=== PATIENT | male | born 1995 | race Hispanic/Latino ===

== ENCOUNTER 2017-12-31 13:40 | Emergency (ER) | payer OTHER ==
--- NOTE | 2017-12-31 15:09 | RAD REPORT ---
EXAM DESCRIPTION: RAD -Hand Left 3 View - 12/31/2017 2:45 pm CLINICAL HISTORY: Left hand pain status post injury FINDINGS: The fifth middle phalanx is dislocated dorsally. No fracture is seen
[2017-12-31] MEDS ORDERED: LIDOCAINE 1% MPF 5 ML VIAL ONE (15:17)
[2017-12-31] MEDS ORDERED: BUPIVACAINE 0.5% PF 10 ML VIAL ONE (15:17)
--- NOTE | 2017-12-31 15:58 | EDPHYS ---
Physician Documentation [facility] Name: Carl Sandy Age: 22 yrs Sex: Male : 1995 Arrival Date: 12/31/2017 Time: 13:42 Bed 24 Private MD: ED Physician Delmar Snow HPI: 12/31 13:50 This 22 yrs old Male presents to ER via Ambulatory with complaints of Finger kb Injury. 13:50 The patient or guardian reports injury, pain, swelling, tenderness. The complaints kb affect the left little finger. Context: The problem was sustained at home, resulted from a crush injury, by a heavy object. Onset: The symptoms/episode began/occurred this morning, at 06:30. Modifying factors: The symptoms are alleviated by nothing, the symptoms are aggravated by nothing. Associated signs and symptoms: The patient has no apparent associated signs or symptoms. Severity of symptoms: At their worst the symptoms were moderate, in the emergency department the symptoms are unchanged. The patient has not experienced similar symptoms in the past. The patient has not recently seen a physician. Historical: - Allergies: 13:45 No Known Allergies; la1 - PMHx: 13:45 Diabetes - NIDDM; la1 - Immunization history:: Adult Immunizations up to date. - Social history:: Smoking status: Patient/guardian denies using tobacco. ROS: 13:50 Constitutional: Negative for fever, chills, and weight loss, Cardiovascular: Negative kb for chest pain, palpitations, and edema, Respiratory: Negative for shortness of breath, cough, wheezing, and pleuritic chest pain, Abdomen/GI: Negative for abdominal pain, nausea, vomiting, diarrhea, and constipation, Neuro: Negative for headache, weakness, numbness, tingling, and seizure. 13:50 MS/extremity: Positive for injury or acute deformity, ecchymosis, pain, swelling, tenderness, of the left little finger. Exam: 13:50 Constitutional: This is a well developed, well nourished patient who is awake, alert, kb and in no acute distress. Head/Face: Normocephalic, atraumatic. Chest/axilla: Normal chest wall appearance and motion. Nontender with no deformity. No lesions are appreciated. Cardiovascular: Regular rate and rhythm with a normal S1 and S2. No gallops, murmurs, or rubs. Normal PMI, no JVD. No pulse deficits. Respiratory: Lungs have equal breath sounds bilaterally, clear to auscultation and percussion. No rales, rhonchi or wheezes noted. No increased work of breathing, no retractions or nasal flaring. Abdomen/GI: Soft, non-tender, with normal bowel sounds. No distension or tympany. No guarding or rebound. No evidence of tenderness throughout. Neuro: Awake and alert, GCS 15, oriented to person, place, time, and situation. Cranial nerves II-XII grossly intact. Motor strength 5/5 in all extremities. Sensory grossly intact. Cerebellar exam normal. Normal gait. 13:50 Musculoskeletal/extremity: Extremities: grossly normal except: noted in the left little finger: decreased ROM, ecchymosis, pain, swelling, tenderness, ROM: limited active range of motion, in the left little finger, Circulation is intact in all extremities. Sensation intact. Vital Signs: 13:45 BP 151 / 90; Pulse 105; Resp 19; Temp 97.3; Pulse Ox 100% on R/A; Weight 108.41 kg (R); la1 16:08 BP 149 / 86; Pulse 94; Resp 17; Pulse Ox 99% on R/A; aj Procedures: 15:17 Reduction: of the left little finger, using traction, Immobilized with finger splint, kb Patient tolerated well. 15:57 Reduction: Post reduction film - reveals normal alignment. kb MDM: 13:47 Patient medically screened. kb 13:50 Data reviewed: vital signs, nurses notes. Data interpreted: Pulse oximetry: on room air kb is 100 %. Interpretation: normal. 15:17 Counseling: I had a detailed discussion with the patient and/or guardian regarding: the kb historical points, exam findings, and any diagnostic results supporting the discharge/admit diagnosis, radiology results, the need for outpatient follow up, a orthopedic surgeon, to return to the emergency department if symptoms worsen or persist or if there are any questions or concerns that arise at home. 12/31 13:49 Order name: Hand Left 3 View XRAY; Complete Time: 15:12 kb 12/31 15:45 Order name: Hand Left 3 View; Complete Time: 16:06 EDMS Administered Medications: 15:01 Drug: Lidocaine (1 %) 5 mg Route: Infiltration; aj 15:02 Drug: Bupivacaine (0.5 %) 5 ml Volume: 10 ml; Route: Infiltration; grisel Disposition: 16:52 Co-signature as Attending Physician, Delmar Snow MD I agree with the assessment and kdr plan of care. Disposition: 12/31/17 15:58 Discharged to Home. Impression: Unspecified dislocation of left little finger - middle phalynx - reduced. - Condition is Stable. - Discharge Instructions: Finger Dislocation, [id number]. - Medication Reconciliation Form, Thank You Letter, Antibiotic Education, Prescription Opioid Use form. - Follow up: Emergency Department; When: As needed; Reason: Worsening of condition. Follow up: Private Physician; When: 2 - 3 days; Reason: Recheck today's complaints, Continuance of care, Re-evaluation by your physician. Signatures: Dispatcher [employer] EDvEelia Deleon, INTERNET SECURITY SPECIALIST-C INTERNET SECURITY SPECIALIST-CkIsha Orellana, RN Delmar Solitario MD MD [facility] Dav Fuentes RN RN la1 Corrections: (The following items were deleted from the chart) 15:45 15:18 Hand Left 2 View+RAD.RAD.BRZ ordered. EDMT EDMS
--- NOTE | 2017-12-31 15:58 | ER ---
Nurse's Notes [facility] Name: Carl Sandy Age: 22 yrs Sex: Male : 1995 Arrival Date: 12/31/2017 Time: 13:42 Bed 24 Private MD: Diagnosis: Unspecified dislocation of left little finger-middle phalynx - reduced Presentation: 12/31 13:44 Presenting complaint: Patient states: I dropped a box on my left pinky and its bruising la1 pretty bad. Transition of care: patient was not received from another setting of care. Onset of symptoms was December 31, 2017. Care prior to arrival: None. 13:44 Method Of Arrival: Ambulatory la1 13:44 Acuity: NICKY 4 la1 Historical: - Allergies: 13:45 No Known Allergies; la1 - PMHx: 13:45 Diabetes - NIDDM; la1 - Immunization history:: Adult Immunizations up to date. - Social history:: Smoking status: Patient/guardian denies using tobacco. Screenin:02 Abuse screen: Denies threats or abuse. Denies injuries from another. Nutritional aj screening: No deficits noted. Tuberculosis screening: No symptoms or risk factors identified. Fall Risk None identified. Assessment: 13:59 General: Appears in no apparent distress. comfortable, Behavior is calm, cooperative, aj appropriate for age. Pain: Complains of pain in palmar aspect of distal phalanx of left little finger, palmar aspect of middle phalanx of left little finger, palmar aspect of proximal phalanx of left little finger and inner aspect of left palm. Neuro: Level of Consciousness is awake, alert, obeys commands, Oriented to person, place, time, situation. Respiratory: Airway is patent Respiratory effort is even, unlabored, Respiratory pattern is regular, symmetrical. Derm: Skin is intact, is healthy with good turgor, Skin is pink, warm \T\ dry. normal, Bruising that is dark purple, on palmar aspect of distal phalanx of left little finger, palmar aspect of middle phalanx of left little finger, palmar aspect of proximal phalanx of left little finger and inner aspect of left palm. Musculoskeletal: Swelling present in palmar aspect of distal phalanx of left little finger, palmar aspect of middle phalanx of left little finger, palmar aspect of proximal phalanx of left little finger and inner aspect of left palm Reports pain in palmar aspect of distal phalanx of left little finger, palmar aspect of middle phalanx of left little finger, palmar aspect of proximal phalanx of left little finger and inner aspect of left palm. 16:08 Reassessment: Patient appears in no apparent distress at this time. No changes from aj previously documented assessment. Patient and/or family updated on plan of care and expected duration. Pain level reassessed. Patient is alert, oriented x 3, equal unlabored respirations, skin warm/dry/pink. Patient states feeling better. Patient states symptoms have improved. Vital Signs: 13:45 BP 151 / 90; Pulse 105; Resp 19; Temp 97.3; Pulse Ox 100% on R/A; Weight 108.41 kg (R); la1 16:08 BP 149 / 86; Pulse 94; Resp 17; Pulse Ox 99% on R/A; aj ED Course: 13:42 Patient arrived in ED. as 13:44 Dav Fuentes RN is Primary Nurse. la1 13:45 Triage completed. la1 13:45 Arm band placed on left wrist. la1 13:46 Evelia Rasmussen FNP-C is PHCP. kb 13:46 Delmar Snow MD is Attending Physician. kb 14:02 Patient has correct armband on for positive identification. aj 14:42 X-ray completed. Portable x-ray completed in exam room. Patient tolerated procedure la2 well. 14:44 Hand Left 3 View XRAY In Process Unspecified. EDMS 15:47 Hand Left 3 View In Process Unspecified. EDMS 16:08 No provider procedures requiring assistance completed. Patient did not have IV access aj during this emergency room visit. Administered Medications: 15:01 Drug: Lidocaine (1 %) 5 mg Route: Infiltration; aj 15:02 Drug: Bupivacaine (0.5 %) 5 ml Volume: 10 ml; Route: Infiltration; aj Outcome: 15:58 Discharge ordered by . kb 16:08 Discharged to home ambulatory. aj 16:08 Condition: good 16:08 Discharge instructions given to patient, Instructed on discharge instructions, follow up and referral plans. Demonstrated understanding of instructions, follow-up care, splint care. 16:10 Patient left the ED. aj Signatures: Dispatcher [employer] EDMS Evelia Rasmussen FNP-C SHOWROOM SALES ASSISTANT-Ckb Ihsa Goel, RN RN Adriana Tobias Lee, RN RN la1 Caroline Blackwell
--- NOTE | 2017-12-31 16:04 | RAD REPORT ---
EXAM DESCRIPTION: RAD -Hand Left 3 View - 12/31/2017 3:48 pm CLINICAL HISTORY: Left hand pain status post injury FINDINGS: Previously described dislocation involving the fifth middle phalanx has been reduced.
[2017-12-31 16:14] VITALS: TEMP 97.3
[2017-12-31 16:15] VITALS: BP 149/86; O2SAT 99
== END 2017-12-31 16:10 | disposition home or self-care (01) ==
LOC: ER 13:40
PROC: 0RSXXZZ Reposition Left Finger Phalangeal Joint, External Approach (ICD-10-PCS; principal; 2017-12-31)
DX: S63.257A Unspecified dislocation of left little finger, initial encounter (principal); W23.0XXA Caught, crushed, jammed, or pinched between moving objects, initial encounter; Y93.9 Activity, unspecified; Y92.9 Unspecified place or not applicable; Y99.9 Unspecified external cause status
CPT/HCPCS: 99283

== ENCOUNTER 2018-04-23 15:57 | Emergency (ER) | payer OTHER, SELFPAY ==
--- NOTE | 2018-04-23 17:57 | ER ---
Nurse's Notes [facility] Name: Carl Sandy Age: 22 yrs Sex: Male : 1995 Arrival Date: 04/23/2018 Time: 16:04 Bed 12 Private MD: Yves Salcedo W Diagnosis: Vomiting;Other seasonal allergic rhinitis Presentation: 04/23 16:24 Presenting complaint: Patient states: Itchy eyes, nonproductive cough, nausea, and hb sinus congestion x 3 weeks, worse over last 3 days. Transition of care: patient was not received from another setting of care. Onset of symptoms was April 23, 2018. Risk Assessment: Do you want to hurt yourself or someone else? Patient reports no desire to harm self or others. Initial Sepsis Screen: Does the patient meet any 2 criteria? No. Patient's initial sepsis screen is negative. Does the patient have a suspected source of infection? No. Patient's initial sepsis screen is negative. Care prior to arrival: None. 16:24 Method Of Arrival: Ambulatory hb 16:24 Acuity: NICKY 4 hb Historical: - Allergies: 16:26 No Known Drug Allergies; hb - Home Meds: 16:26 Metformin Oral [Active]; glipizide 2.5 mg Oral tr24 2 tabs once daily [Active]; hb - PMHx: 16:26 Diabetes - NIDDM; hb - PSHx: 16:26 None; hb - Immunization history:: Adult Immunizations up to date. - Social history:: Smoking status: Patient/guardian denies using tobacco. - Ebola Screening: : No symptoms or risks identified at this time. Screenin:08 Abuse screen: Denies threats or abuse. Denies injuries from another. Nutritional rv screening: No deficits noted. Tuberculosis screening: No symptoms or risk factors identified. Fall Risk None identified. Assessment: 17:22 General: Appears in no apparent distress. comfortable, Behavior is calm, cooperative, rv appropriate for age. Pain: Denies pain. Pain: Complains of pain in HEAD. Neuro: Level of Consciousness is awake, alert, obeys commands, Oriented to person, place, time, situation. Cardiovascular: Heart tones S1 S2 present. Respiratory: Airway is patent. GI: No signs and/or symptoms were reported involving the gastrointestinal system. : No signs and/or symptoms were reported regarding the genitourinary system. EENT: No signs and/or symptoms were reported regarding the EENT system. Derm: Skin is intact. Vital Signs: 16:25 BP 161 / 95; Pulse 98; Resp 16; Temp 98; Pulse Ox 98% on R/A; Pain 4/10; hb ED Course: 16:04 Patient arrived in ED. sb2 16:04 Yves Salcedo MD is Private Physician. sb2 16:25 Triage completed. hb 16:25 Arm band placed on left wrist. hb 17:17 Jonas Lawrence PA is PHCP. jr8 17:17 Cj Sanders MD is Attending Physician. jr8 18:08 No provider procedures requiring assistance completed. rv 18:08 Patient did not have IV access during this emergency room visit. rv 18:09 Patient has correct armband on for positive identification. Bed in low position. NIBP rv on. Administered Medications: No medications were administered Point of Care Testing: Blood Glucose: 18:07 Blood Glucose: 276 mg/dL; rv Ranges: Outcome: 17:57 Discharge ordered by . jr8 18:09 Discharged to home ambulatory. rv 18:09 Condition: good 18:09 Discharge instructions given to patient, Instructed on discharge instructions, follow up and referral plans. Prescriptions given X 1. 18:09 Patient left the ED. rv Signatures: Jonas Lawrence PA PA jr8 Kya Vásquez, RN RN Kyle Anne-Marie sb2 Boby Camp RN RN rv
--- NOTE | 2018-04-23 17:57 | EDPHYS ---
Physician Documentation [facility] Name: Carl Sandy Age: 22 yrs Sex: Male : 1995 Arrival Date: 04/23/2018 Time: 16:04 Bed 12 Private MD: Yves Salcedo W ED Physician Cj Sanders HPI: 04/23 18:58 This 22 yrs old Male presents to ER via Ambulatory with complaints of Sinus jr8 congestion and vomiting. 18:58 Patient stated that he has seasonal allergies every year and has been having sinus jr8 congestion and drainage. Stated that he started vomiting and feeling dizzy now . Onset: The symptoms/episode began/occurred acutely, yesterday. Severity of symptoms: At their worst the symptoms were mild in the emergency department the symptoms are unchanged. The patient has not experienced similar symptoms in the past. The patient has not recently seen a physician. Historical: - Allergies: 16:26 No Known Drug Allergies; hb - Home Meds: 16:26 Metformin Oral [Active]; glipizide 2.5 mg Oral tr24 2 tabs once daily [Active]; hb - PMHx: 16:26 Diabetes - NIDDM; hb - PSHx: 16:26 None; hb - Immunization history:: Adult Immunizations up to date. - Social history:: Smoking status: Patient/guardian denies using tobacco. - Ebola Screening: : No symptoms or risks identified at this time. ROS: 18:58 Eyes: Negative for injury, pain, redness, and discharge, Neck: Negative for injury, jr8 pain, and swelling, Cardiovascular: Negative for chest pain, palpitations, and edema, Respiratory: Negative for shortness of breath, cough, wheezing, and pleuritic chest pain, Abdomen/GI: Negative for abdominal pain,, diarrhea, and constipation. Positive for vomiting Back: Negative for injury and pain, MS/Extremity: Negative for injury and deformity, Skin: Negative for injury, rash, and discoloration, Neuro: Negative for headache, weakness, numbness, tingling, and seizure. 18:58 ENT: Positive for rhinorrhea, sinus congestion, Negative for drainage from ear(s), ear pain, sore throat, difficulty swallowing, difficulty handling secretions, hoarseness. Exam: 18:58 Eyes: Pupils equal round and reactive to light, extra-ocular motions intact. Lids and jr8 lashes normal. Conjunctiva and sclera are non-icteric and not injected. Cornea within normal limits. Periorbital areas with no swelling, redness, or edema. ENT: Nares patent. No nasal discharge, no septal abnormalities noted. Tympanic membranes are normal and external auditory canals are clear. Oropharynx with no redness, swelling, or masses, exudates, or evidence of obstruction, uvula midline. Mucous membranes moist. Neck: Trachea midline, no thyromegaly or masses palpated, and no cervical lymphadenopathy. Supple, full range of motion without nuchal rigidity, or vertebral point tenderness. No Meningismus. Cardiovascular: Regular rate and rhythm with a normal S1 and S2. No gallops, murmurs, or rubs. Normal PMI, no JVD. No pulse deficits. Respiratory: Lungs have equal breath sounds bilaterally, clear to auscultation and percussion. No rales, rhonchi or wheezes noted. No increased work of breathing, no retractions or nasal flaring. Abdomen/GI: Soft, non-tender, with normal bowel sounds. No distension or tympany. No guarding or rebound. No evidence of tenderness throughout. Back: No spinal tenderness. No costovertebral tenderness. Full range of motion. Skin: Warm, dry with normal turgor. Normal color with no rashes, no lesions, and no evidence of cellulitis. MS/ Extremity: Pulses equal, no cyanosis. Neurovascular intact. Full, normal range of motion. Neuro: Awake and alert, GCS 15, oriented to person, place, time, and situation. Cranial nerves II-XII grossly intact. Motor strength 5/5 in all extremities. Sensory grossly intact. Cerebellar exam normal. Normal gait. Vital Signs: 16:25 BP 161 / 95; Pulse 98; Resp 16; Temp 98; Pulse Ox 98% on R/A; Pain 4/10; hb MDM: 17:33 Patient medically screened. jr8 17:55 Data reviewed: vital signs, nurses notes, and as a result, I will discharge patient. jr8 Data interpreted: Pulse oximetry: on room air is 98 %. Interpretation: normal. Counseling: I had a detailed discussion with the patient and/or guardian regarding: the historical points, exam findings, and any diagnostic results supporting the discharge/admit diagnosis, the need for outpatient follow up, a family practitioner, to return to the emergency department if symptoms worsen or persist or if there are any questions or concerns that arise at home. 04/23 17:56 Order name: Finger Stick; Complete Time: 18:07 jr8 Administered Medications: No medications were administered Point of Care Testing: Blood Glucose: 18:07 Blood Glucose: 276 mg/dL; rv Ranges: Critical Glucose Levels:Adult <50 mg/dl or >400 mg/dl <40 mg/dl or >180 mg/dl Disposition: 04/24 09:33 Co-signature as Attending Physician, Cj Sanders MD I agree with the assessment and malick plan of care. Disposition: 04/23/18 17:57 Discharged to Home. Impression: Vomiting, Other seasonal allergic rhinitis. - Condition is Stable. - Discharge Instructions: Nausea and Vomiting, Adult, Allergic Rhinitis. - Prescriptions for Zofran 4 mg Oral Tablet - take 1 tablet by ORAL route every 12 hours As needed; 6 tablet. - Medication Reconciliation Form, Thank You Letter, Antibiotic Education, Prescription Opioid Use form. - Follow up: Private Physician; When: 2 - 3 days; Reason: Recheck today's complaints, Continuance of care, Re-evaluation by your physician. - Problem is new. - Symptoms have improved. Signatures: Cj Sanders MD MD cha Roszak, Josh, PA PA jr8 Kya Vásquez, AMOR RN Boby Morgan RN RN rv Corrections: (The following items were deleted from the chart) 04/23 18:09 17:57 04/23/2018 17:57 Discharged to Home. Impression: Vomiting; Other seasonal rv allergic rhinitis. Condition is Stable. Forms are Medication Reconciliation Form, Thank You Letter, Antibiotic Education, Prescription Opioid Use. Follow up: Private Physician; When: 2 - 3 days; Reason: Recheck today's complaints, Continuance of care, Re-evaluation by your physician. Problem is new. Symptoms have improved. jr8
[2018-04-23 19:33] VITALS: BP 161/95; TEMP 98; O2SAT 98
== END 2018-04-23 18:09 | disposition home or self-care (01) ==
LOC: ER 15:57
DX: R11.10 Vomiting, unspecified (principal); J30.2 Other seasonal allergic rhinitis; E11.9 Type 2 diabetes mellitus without complications
CPT/HCPCS: 82962; 99282

== ENCOUNTER 2018-10-07 03:53 | Emergency (ER) | payer SELFPAY ==
[2018-10-07] MEDS ORDERED: ACETAMINOPHEN 500 MG TAB ONE (04:56)
[2018-10-07] MEDS ORDERED: FLUORESCEIN SODIUM 0.6 MG/WRAP ONE (04:57)
[2018-10-07] MEDS ORDERED: TETRACAINE HCL 0.5% 2ML OPTH ONE (04:57)
--- NOTE | 2018-10-07 05:18 | ER ---
Nurse's Notes [facility] Name: Carl Sandy Age: 23 yrs Sex: Male : 1995 Arrival Date: 10/07/2018 Time: 03:54 Bed 13 Private MD: Diagnosis: Acute Iritis R eye Presentation: 10/07 04:00 Presenting complaint: Patient states: Nontraumatic right eye redness, itchiness, and cc3 teary since 2 days. Transition of care: patient was not received from another setting of care. Mechanism of Injury: No Mechanism of Injury. The patient denies any loss of vision. Onset of symptoms was October 05, 2018. Risk Assessment: Do you want to hurt yourself or someone else? Patient reports no desire to harm self or others. Initial Sepsis Screen: Does the patient meet any 2 criteria? No. Patient's initial sepsis screen is negative. Does the patient have a suspected source of infection? No. Patient's initial sepsis screen is negative. 04:00 Method Of Arrival: Ambulatory cc3 04:00 Acuity: NICKY 3 cc3 04:00 Care prior to arrival: Medication(s) given: applied cream for stye at 2230H last night. cc3 Triage Assessment: 04:12 General: Appears in no apparent distress. uncomfortable, Behavior is calm, cooperative, cc3 appropriate for age. Pain: Complains of pain in right eye. EENT: Eyes are tearing on right eye. Neuro: Level of Consciousness is awake, alert, obeys commands, Oriented to person, place, time, situation, Appropriate for age. Cardiovascular: Denies chest pain. Respiratory: Airway is patent Respiratory effort is even, unlabored, Respiratory pattern is regular, symmetrical. GI: Abdomen is round obese. : No signs and/or symptoms were reported regarding the genitourinary system. Derm: No signs and/or symptoms reported regarding the dermatologic system. Musculoskeletal: Circulation, motion, and sensation intact. Range of motion:. Historical: - Allergies: 04:12 No Known Allergies; cc3 - Home Meds: 04:12 glipizide 2.5 mg Oral tr24 2 tabs once daily [Active]; Metformin Oral [Active]; cc3 - PMHx: 04:12 Diabetes - NIDDM; Hypertension; cc3 - PSHx: 04:12 abscess removal from the groin area; cc3 - Immunization history:: Adult Immunizations not up to date. - Social history:: Smoking status: Patient/guardian denies using tobacco, never smoked. - Ebola Screening: : No symptoms or risks identified at this time. - Family history:: not pertinent. - Hospitalizations: : No recent hospitalization is reported. Screenin:12 Abuse screen: Denies threats or abuse. Denies injuries from another. Nutritional cc3 screening: No deficits noted. Tuberculosis screening: No symptoms or risk factors identified. Fall Risk Ambulatory Aid- None/Bed Rest/Nurse Assist (0 pts). Gait- Normal/Bed Rest/Wheelchair (0 pts) Mental Status- Oriented to own ability (0 pts). Assessment: 04:12 EENT: Sclera/Cornea are reddened in right eye. cc3 05:30 Reassessment: Patient appears in no apparent distress at this time. Patient and/or cc3 family updated on plan of care and expected duration. Pain level reassessed. Patient is alert, oriented x 3, equal unlabored respirations, skin warm/dry/pink. Dr. Moura discharged the patient home with prescription given. No IV cannula in situ. Patient left ER vitally stable and ambulatory with his girlfriend. Vital Signs: 04:00 BP 162 / 97; Pulse 112; Resp 20 S; Temp 99.1(O); Pulse Ox 97% on R/A; Weight 108.86 kg cc3 (R); Height 5 ft. 7 in. (170.18 cm) (R); Pain 10/10; 05:15 BP 135 / 73; Pulse 100; Resp 19 S; Pulse Ox 96% on R/A; cc3 04:00 Body Mass Index 37.59 (108.86 kg, 170.18 cm) cc3 Visual Acuity: 04:12 ; patient glares with lights on cc3 ED Course: 03:54 Patient arrived in ED. ds1 03:58 Millie Vogel is Primary Nurse. cc3 04:11 Triage completed. cc3 04:12 Arm band placed on right wrist. Patient notified of wait time. cc3 04:12 Patient has correct armband on for positive identification. Bed in low position. Call cc3 light in reach. Side rails up X 1. Pulse ox on. NIBP on. 04:20 Jhonathan Moura MD is Attending Physician. 05:17 Dima Sharma MD is Referral Physician. 05:17 Kari Cardenas MD is Referral Physician. 05:17 David Sharma MD is Referral Physician. 05:30 No provider procedures requiring assistance completed. Patient did not have IV access cc3 during this emergency room visit. Administered Medications: 04:45 Drug: Tylenol 1000 mg Route: PO; cc3 05:15 Follow up: Response: No adverse reaction; Pain is decreased cc3 04:50 Drug: Tetracaine Drops 0.5 % 1 drops Route: Ophthalmic; Site: right eye; cc3 04:55 Drug: Fluorescein Strip 1 strip {Note: given by Dr. Moura.} Route: Ophthalmic; Site: cc3 right eye; Outcome: 05:18 Discharge ordered by . 05:30 Discharged to home ambulatory, with friend. cc3 05:30 Condition: stable 05:30 Discharge instructions given to patient, friend, Instructed on discharge instructions, follow up and referral plans. medication usage, Demonstrated understanding of instructions, follow-up care, medications, Prescriptions given X 1. 05:33 Patient left the ED. cc3 Signatures: Oneida Espinosa ds1 Jhonathan Moura MD MD wa Cordel, Charlene cc3
--- NOTE | 2018-10-07 05:18 | EDPHYS ---
Physician Documentation [facility] Name: Carl Sandy Age: 23 yrs Sex: Male : 1995 Arrival Date: 10/07/2018 Time: 03:54 Bed 13 Private MD: ED Physician Jhonathan Moura HPI: 10/07 20:57 This 23 yrs old Male presents to ER via Ambulatory with complaints of Eye Pain.wa 20:57 The patient is experiencing pain, tearing, to the right eye, caused by an unknown wa mechanism, c/o 2 days of redness and tearing R eye. painful to light with R side facial CARBALLO. improves in the dark. states slapped the side of head on the right side a day prior when was upset at self for losing in a video game. . Onset: The symptoms/episode began/occurred 2 day(s) ago. Duration: the symptoms are continuous. Aggravated by light, Alleviated by dark room. Associated signs and symptoms: Pertinent positives: headache, R side with light, Pertinent negatives: chills, dizziness, fever. Patient does not utilize any form of vision correction. Severity of symptoms: At their worst the symptoms were moderate in the emergency department the symptoms are worse markedly. The patient has not experienced similar symptoms in the past. The patient has not recently seen a physician. Historical: - Allergies: 04:12 No Known Allergies; cc3 - Home Meds: 04:12 glipizide 2.5 mg Oral tr24 2 tabs once daily [Active]; Metformin Oral [Active]; cc3 - PMHx: 04:12 Diabetes - NIDDM; Hypertension; cc3 - PSHx: 04:12 abscess removal from the groin area; cc3 - Immunization history:: Adult Immunizations not up to date. - Social history:: Smoking status: Patient/guardian denies using tobacco, never smoked. - Ebola Screening: : No symptoms or risks identified at this time. - Family history:: not pertinent. - Hospitalizations: : No recent hospitalization is reported. ROS: 21:00 Constitutional: Negative for fever, chills, and weight loss, ENT: Negative for injury, wa pain, and discharge, Neck: Negative for injury, pain, and swelling, Cardiovascular: Negative for chest pain, palpitations, and edema, Respiratory: Negative for shortness of breath, cough, wheezing, and pleuritic chest pain, Abdomen/GI: Negative for abdominal pain, nausea, vomiting, diarrhea, and constipation, Back: Negative for injury and pain, : Negative for injury, bleeding, discharge, and swelling, MS/Extremity: Negative for injury and deformity, Skin: Negative for injury, rash, and discoloration, Neuro: Negative for headache, weakness, numbness, tingling, and seizure. 21:00 Eyes: Positive for pain, redness, of the right eye, Negative for discharge, foreign body sensation. Exam: 21:01 Visual Acuity: I have reviewed the nursing documentation. ar 21:01 Head/Face: Normocephalic, atraumatic. ENT: Nares patent. No nasal discharge, no septal abnormalities noted. Tympanic membranes are normal and external auditory canals are clear. Oropharynx with no redness, swelling, or masses, exudates, or evidence of obstruction, uvula midline. Mucous membranes moist. Neck: Trachea midline, no thyromegaly or masses palpated, and no cervical lymphadenopathy. Supple, full range of motion without nuchal rigidity, or vertebral point tenderness. No Meningismus. Chest/axilla: Normal chest wall appearance and motion. Nontender with no deformity. No lesions are appreciated. Cardiovascular: Regular rate and rhythm with a normal S1 and S2. No gallops, murmurs, or rubs. Normal PMI, no JVD. No pulse deficits. Respiratory: Lungs have equal breath sounds bilaterally, clear to auscultation and percussion. No rales, rhonchi or wheezes noted. No increased work of breathing, no retractions or nasal flaring. Abdomen/GI: Soft, non-tender, with normal bowel sounds. No distension or tympany. No guarding or rebound. No evidence of tenderness throughout. Back: No spinal tenderness. No costovertebral tenderness. Full range of motion. Skin: Warm, dry with normal turgor. Normal color with no rashes, no lesions, and no evidence of cellulitis. MS/ Extremity: Pulses equal, no cyanosis. Neurovascular intact. Full, normal range of motion. Neuro: Awake and alert, GCS 15, oriented to person, place, time, and situation. Cranial nerves II-XII grossly intact. Motor strength 5/5 in all extremities. Sensory grossly intact. Cerebellar exam normal. Normal gait. Psych: Awake, alert, with orientation to person, place and time. Behavior, mood, and affect are within normal limits. 21:01 Eyes: Periorbital structures: appear normal, Pupils: equal, round, and reactive to light and accomodation, Extraocular movements: intact throughout, Conjunctiva: injected, in the right eye, tearing noted, in right eye, Corneas: are normal, Sclera: no appreciated abnormality, Anterior chamber: normal. Vital Signs: 04:00 BP 162 / 97; Pulse 112; Resp 20 S; Temp 99.1(O); Pulse Ox 97% on R/A; Weight 108.86 kg cc3 (R); Height 5 ft. 7 in. (170.18 cm) (R); Pain 10/10; 05:15 BP 135 / 73; Pulse 100; Resp 19 S; Pulse Ox 96% on R/A; cc3 04:00 Body Mass Index 37.59 (108.86 kg, 170.18 cm) cc3 Visual Acuity: 04:12 ; patient glares with lights on cc3 Procedures: 21:04 Performed fluorescein stain of R eye after tetracaine anesthesia. no corneal abrasion wa noted on stain. tolerated well.. MDM: 04:20 Patient medically screened. wa 21:02 Differential diagnosis: Corneal abrasion of right eye. Corneal ulcer of right eye. wa Acute iritis of right eye. Chemical conjunctivitis in right eye. Allergic conjunctivitis in right eye. Infectious conjunctivitis in right eye. Data reviewed: vital signs, nurses notes. Response to treatment: the patient's symptoms have markedly improved after treatment. Administered Medications: 04:45 Drug: Tylenol 1000 mg Route: PO; cc3 05:15 Follow up: Response: No adverse reaction; Pain is decreased cc3 04:50 Drug: Tetracaine Drops 0.5 % 1 drops Route: Ophthalmic; Site: right eye; cc3 04:55 Drug: Fluorescein Strip 1 strip {Note: given by Dr. Moura.} Route: Ophthalmic; Site: cc3 right eye; Disposition: 10/07/18 05:18 Discharged to Home. Impression: Acute Iritis R eye. - Condition is Stable. - Prescriptions for TobraDex 0.3- 0.1 % Ophthalmic drops,suspension - instill 1 drop by OPHTHALMIC route every 6 hours for 5 days; 1 packet. - Medication Reconciliation Form, Thank You Letter, Antibiotic Education, Prescription Opioid Use form. - Follow up: Dima Sharma MD; When: 1 - 2 days. Follow up: Kari Cardenas MD; When: 1 - 2 days. Follow up: David Sharma MD; When: 1 - 2 days. - Problem is new. - Symptoms have improved. - Notes: wear dark glasses to prevent light from shining in the affected eye. follow up with the eye doctor for further evaluation of the eye within 48 hours Signatures: Jhonathan Moura MD MD wa Cordel, Charlene cc3 Corrections: (The following items were deleted from the chart) 05:33 05:18 10/07/2018 05:18 Discharged to Home. Impression: Acute Iritis R eye. Condition is cc3 Stable. Forms are Medication Reconciliation Form, Thank You Letter, Antibiotic Education, Prescription Opioid Use. Follow up: Dima Sharma; When: 1 - 2 days. Follow up: Kari Cardenas; When: 1 - 2 days. Follow up: David Sharma; When: 1 - 2 days. Problem is new. Symptoms have improved. wa
== END 2018-10-07 05:33 | disposition home or self-care (01) ==
LOC: ER 03:53
DX: H20.00 Unspecified acute and subacute iridocyclitis (principal); E11.9 Type 2 diabetes mellitus without complications; I10 Essential (primary) hypertension; Z79.84 Long term (current) use of oral hypoglycemic drugs
CPT/HCPCS: 99283

== ENCOUNTER 2019-04-29 02:10 | Emergency (ER) | payer SELFPAY ==
--- NOTE | 2019-04-29 02:34 | ER ---
Nurse's Notes [facility] Name: Carl Sandy Age: 23 yrs Sex: Male : 1995 Arrival Date: 04/29/2019 Time: 02:14 Bed 6 Private MD: None, None Diagnosis: Cellulitis of right toe Presentation: 04/29 02:25 Presenting complaint: Patient states: Pt reports Monday he accidentally squashed his ea toe, reports today the pain has intensified and the small toe is swollen. Transition of care: patient was not received from another setting of care. Onset of symptoms. Risk Assessment: Do you want to hurt yourself or someone else? Patient reports no desire to harm self or others. Initial Sepsis Screen: Does the patient meet any 2 criteria? No. Patient's initial sepsis screen is negative. Does the patient have a suspected source of infection? No. Patient's initial sepsis screen is negative. Care prior to arrival: None. 02:25 Method Of Arrival: Ambulatory ea 02:25 Acuity: NICKY 4 ea Historical: - Home Meds: 02:30 None [Active]; ea - PMHx: 02:30 Diabetes - NIDDM; Hypertension; ea - PSHx: 02:30 None; ea - Immunization history:: Adult Immunizations up to date. - Social history:: Smoking status: Patient/guardian denies using tobacco. - Ebola Screening: : No symptoms or risks identified at this time. Screenin:28 Abuse screen: Denies threats or abuse. Nutritional screening: No deficits noted. ea Tuberculosis screening: No symptoms or risk factors identified. Fall Risk None identified. Assessment: 02:31 General: Appears in no apparent distress. Behavior is appropriate for age. Pain: ea Complains of pain in right third toe, right fourth toe and right fifth toe. Neuro: Level of Consciousness is awake, alert, obeys commands, Oriented to person, place, time, situation. Cardiovascular: Patient's skin is warm and dry. Respiratory: Airway is patent Respiratory effort is even, unlabored, Respiratory pattern is regular, symmetrical. Derm: swelling noted to right small toe. 02:41 Reassessment: Patient and/or family updated on plan of care and expected duration. Pain ea level reassessed. Patient is alert, oriented x 3, equal unlabored respirations, skin warm/dry/pink. Discharge instruction given to patient, verbalized the understanding of instruction. Pt left ED ambulatory with significant other. Pt tolerated well. Vital Signs: 02:30 BP 150 / 93; Pulse 109; Resp 18; Temp 97.8; Pulse Ox 97% on R/A; Weight 104.33 kg; ea Height 5 ft. 7 in. (170.18 cm); Pain 7/10; 02:30 Body Mass Index 36.02 (104.33 kg, 170.18 cm) ea ED Course: 02:14 Patient arrived in ED. es 02:14 None, None is Private Physician. es 02:25 Jocelyn Perez, RN is Primary Nurse. ea 02:28 Triage completed. ea 02:30 Arm band placed on right wrist. Patient placed in an exam room, on a stretcher, on ea pulse oximetry. 02:30 Patient has correct armband on for positive identification. Bed in low position. Call ea light in reach. Side rails up X2. 02:31 Lonnie Garcia MD is Attending Physician. tw4 02:42 No provider procedures requiring assistance completed. Patient did not have IV access ea during this emergency room visit. Administered Medications: 02:35 Drug: Ibuprofen 800 mg Route: PO; ea 02:45 Follow up: Response: No adverse reaction ea 02:35 Drug: Cleocin 150 mg Route: PO; ea 02:45 Follow up: Response: No adverse reaction ea Outcome: 02:34 Discharge ordered by . tw4 02:43 Discharged to home ambulatory, with family. ea 02:43 Condition: stable 02:43 Discharge instructions given to patient, Instructed on discharge instructions, Demonstrated understanding of instructions, follow-up care, medications, Prescriptions given X 2. 02:44 Patient left the ED. ea Signatures: Maura Rodriguez Elena, RN RN Lonnie Hayward MD MD tw4
--- NOTE | 2019-04-29 02:35 | EDPHYS ---
Physician Documentation [facility] Name: Carl Sandy Age: 23 yrs Sex: Male : 1995 Arrival Date: 04/29/2019 Time: 02:14 Bed 6 Private MD: None, None ED Physician Lonnie Garcia HPI: 04/29 04:56 This 23 yrs old Male presents to ER via Ambulatory with complaints of infected tw4 toe. 04:56 The patient presents with pain, that is acute. The complaints affect the lateral aspect tw4 of right foot. Context: The problem was sustained at home, resulted from. Onset: The symptoms/episode began/occurred today. Modifying factors: The symptoms are alleviated by nothing. the symptoms are aggravated by nothing. Severity of symptoms: At their worst the symptoms were moderate, in the emergency department the symptoms are unchanged. The patient has not experienced similar symptoms in the past. Historical: - Home Meds: 02:30 None [Active]; ea - PMHx: 02:30 Diabetes - NIDDM; Hypertension; ea - PSHx: 02:30 None; ea - Immunization history:: Adult Immunizations up to date. - Social history:: Smoking status: Patient/guardian denies using tobacco. - Ebola Screening: : No symptoms or risks identified at this time. ROS: 04:56 Constitutional: Negative for fever, chills, and weight loss, Eyes: Negative for injury, tw4 pain, redness, and discharge, Neck: Negative for injury, pain, and swelling, Cardiovascular: Negative for chest pain, palpitations, and edema, Respiratory: Negative for shortness of breath, cough, wheezing, and pleuritic chest pain, Abdomen/GI: Negative for abdominal pain, nausea, vomiting, diarrhea, and constipation, Back: Negative for injury and pain, Skin: Negative for injury, rash, and discoloration, Neuro: Negative for headache, weakness, numbness, tingling, and seizure. 04:56 : Positive for urinary symptoms. Exam: 04:56 Constitutional: This is a well developed, well nourished patient who is awake, alert, tw4 and in no acute distress. Head/Face: Normocephalic, atraumatic. Chest/axilla: Normal chest wall appearance and motion. Nontender with no deformity. No lesions are appreciated. Cardiovascular: Regular rate and rhythm with a normal S1 and S2. No gallops, murmurs, or rubs. Normal PMI, no JVD. No pulse deficits. Respiratory: Lungs have equal breath sounds bilaterally, clear to auscultation and percussion. No rales, rhonchi or wheezes noted. No increased work of breathing, no retractions or nasal flaring. Abdomen/GI: Soft, non-tender, with normal bowel sounds. No distension or tympany. No guarding or rebound. No evidence of tenderness throughout. MS/ Extremity: Pulses equal, no cyanosis. Neurovascular intact. Full, normal range of motion. 04:56 Skin: cellulitis, that is minimal, on the right fifth toe. Vital Signs: 02:30 BP 150 / 93; Pulse 109; Resp 18; Temp 97.8; Pulse Ox 97% on R/A; Weight 104.33 kg; ea Height 5 ft. 7 in. (170.18 cm); Pain 7/10; 02:30 Body Mass Index 36.02 (104.33 kg, 170.18 cm) ea MDM: 02:31 Patient medically screened. tw4 04:56 Differential diagnosis: dislocation, open fracture, closed fracture. Data reviewed: tw4 vital signs, nurses notes. Data interpreted: Pulse oximetry: Interpretation: normal. Counseling: I had a detailed discussion with the patient and/or guardian regarding: the historical points, exam findings, and any diagnostic results supporting the discharge/admit diagnosis. Special discussion: I discussed with the patient/guardian in detail that at this point there is no indication for admission to the hospital. It is understood, however, that if the symptoms persist or worsen the patient needs to return immediately for re-evaluation. Administered Medications: 02:35 Drug: Ibuprofen 800 mg Route: PO; ea 02:45 Follow up: Response: No adverse reaction ea 02:35 Drug: Cleocin 150 mg Route: PO; ea 02:45 Follow up: Response: No adverse reaction ea Disposition: 04/29/19 02:34 Discharged to Home. Impression: Cellulitis of right toe. - Condition is Stable. - Discharge Instructions: Cellulitis, Adult, [id number]. - Prescriptions for Cleocin 150 mg Oral Capsule - take 1 capsule by ORAL route every 6 hours for 10 days; 40 capsule. Ibuprofen 800 mg Oral Tablet - take 1 tablet by ORAL route every 12 hours As needed take with food; 20 tablet. - Medication Reconciliation Form, Thank You Letter, Antibiotic Education, Prescription Opioid Use form. - Follow up: Private Physician; When: Upon discharge from the Emergency Department; Reason: If symptoms return, Recheck today's complaints, Continuance of care. - Problem is new. - Symptoms have improved. Signatures: Jocelyn Perez RN RN ea Wadley, Terrence, MD MD tw4 Corrections: (The following items were deleted from the chart) 02:44 02:34 04/29/2019 02:34 Discharged to Home. Impression: Cellulitis of right toe. ea Condition is Stable. Forms are Medication Reconciliation Form, Thank You Letter, Antibiotic Education, Prescription Opioid Use. Follow up: Private Physician; When: Upon discharge from the Emergency Department; Reason: If symptoms return, Recheck today's complaints, Continuance of care. Problem is new. Symptoms have improved. tw4
[2019-04-29 02:50] VITALS: BP 150/93; TEMP 97.8; O2SAT 97
[2019-04-29] MEDS ORDERED: CLINDAMYCIN HCL 150 MG CAP ONE (02:53)
[2019-04-29] MEDS ORDERED: IBUPROFEN 400 MG TAB ONE (02:54)
== END 2019-04-29 02:44 | disposition home or self-care (01) ==
LOC: ER 02:10
DX: L03.031 Cellulitis of right toe (principal); I10 Essential (primary) hypertension
CPT/HCPCS: 99283

== ENCOUNTER 2019-05-13 03:12 | Emergency (ER) | payer SELFPAY ==
[2019-05-13 03:54] LABS: Absolute Lymphocytes (CBC) 2.6 K/uL (0.7-4.9); Basophils % 0.4 % (0-1.3); Hematocrit 46.6 % (39.6-49.0); Lymphocytes % 34.6 % (15.3-44.8); MPV 8.9 fL (7.6-11.3); RBC Red Blood Cell Count 5.94 M/uL (4.33-5.43)
[2019-05-13 04:20] LABS: BUN Blood Urea Nitrogen 19 mg/dL (7-18); Bicarbonate 26 mmol/L (21-32); Glucose Level 301 mg/dL (74-106); Potassium 3.6 mmol/L (3.5-5.1); Sodium Level 137 mmol/L (136-145); Troponin (Emerg Dept Use Only) < 0.02 ng/mL (0.0-0.045)
--- NOTE | 2019-05-13 04:48 | EDPHYS ---
Physician Documentation [facility] Name: Carl Sandy Age: 23 yrs Sex: Male : 1995 Arrival Date: 05/13/2019 Time: 03:16 Bed 7 Private MD: ED Physician Titus Sharma HPI: 05/13 04:42 This 23 yrs old Male presents to ER via Ambulatory with complaints of SOB. gs 04:42 Onset: The symptoms/episode began/occurred acutely, UPON WAKING. Duration: The symptoms gs BRIEF RESOLVED. Associated signs and symptoms: Pertinent positives: chest pain, BRIEF A FEW SECONDS THEN RESOLVED. FELT LIKE COULDN'T CATCH BREATH SUDDEN WAKENING. Severity of symptoms: At their worst the symptoms were severe in the emergency department the symptoms have resolved. The patient has experienced similar episodes in the past, a few times. Historical: - Allergies: 03:28 No Known Allergies; bb - Home Meds: 03:28 None [Active]; bb - PMHx: 03:28 Diabetes - NIDDM; Hypertension; bb 04:44 Sleep Apnea; gs - PSHx: 03:28 I\T\D; bb - Immunization history:: Adult Immunizations up to date. - Social history:: Smoking status: Patient/guardian denies using tobacco. - Ebola Screening: : No symptoms or risks identified at this time. ROS: 04:44 All other systems are negative. gs Exam: 04:44 Head/Face: Normocephalic, atraumatic. Eyes: Pupils equal round and reactive to light, gs extra-ocular motions intact. Lids and lashes normal. Conjunctiva and sclera are non-icteric and not injected. Cornea within normal limits. Periorbital areas with no swelling, redness, or edema. ENT: Nares patent. No nasal discharge, no septal abnormalities noted. Tympanic membranes are normal and external auditory canals are clear. Oropharynx with no redness, swelling, or masses, exudates, or evidence of obstruction, uvula midline. Mucous membranes moist. Neck: Trachea midline, no thyromegaly or masses palpated, and no cervical lymphadenopathy. Supple, full range of motion without nuchal rigidity, or vertebral point tenderness. No Meningismus. Chest/axilla: Normal chest wall appearance and motion. Nontender with no deformity. No lesions are appreciated. Cardiovascular: Regular rate and rhythm with a normal S1 and S2. No gallops, murmurs, or rubs. Normal PMI, no JVD. No pulse deficits. Respiratory: Lungs have equal breath sounds bilaterally, clear to auscultation and percussion. No rales, rhonchi or wheezes noted. No increased work of breathing, no retractions or nasal flaring. Abdomen/GI: Soft, non-tender, with normal bowel sounds. No distension or tympany. No guarding or rebound. No evidence of tenderness throughout. Back: No spinal tenderness. No costovertebral tenderness. Full range of motion. Skin: Warm, dry with normal turgor. Normal color with no rashes, no lesions, and no evidence of cellulitis. MS/ Extremity: Pulses equal, no cyanosis. Neurovascular intact. Full, normal range of motion. Neuro: Awake and alert, GCS 15, oriented to person, place, time, and situation. Cranial nerves II-XII grossly intact. Motor strength 5/5 in all extremities. Sensory grossly intact. Cerebellar exam normal. Normal gait. 04:44 Constitutional: The patient appears alert, awake. 04:44 ECG was reviewed by the Attending Physician. Vital Signs: 03:28 BP 158 / 96; Pulse 98; Resp 16 S; Temp 98.7(O); Pulse Ox 98% on R/A; Weight 104.33 kg bb (R); Height 5 ft. 7 in. (170.18 cm) (R); Pain 0/10; 04:00 BP 130 / 90; Pulse 91; Resp 16; Pulse Ox 97% on R/A; ak1 04:41 BP 131 / 74; Pulse 80; Resp 18; Pulse Ox 96% on R/A; ak1 03:28 Body Mass Index 36.02 (104.33 kg, 170.18 cm) bb MDM: 03:28 Patient medically screened. gs 04:44 Differential diagnosis: Anxiety Reaction. Differential diagnosis: SLEEP APNEA , gs DYSPNEA. Data reviewed: vital signs, nurses notes. Data reviewed: lab test result(s), EKG, radiologic studies. Counseling: I had a detailed discussion with the patient and/or guardian regarding: the historical points, exam findings, and any diagnostic results supporting the discharge/admit diagnosis, lab results, radiology results, the need for outpatient follow up. Response to treatment: the patient's symptoms have resolved after treatment, the patient's condition has returned to base line, and as a result, I will discharge patient. 05/13 03:29 Order name: Basic Metabolic Panel; Complete Time: 04:42 05/13 03:29 Order name: CBC with Diff; Complete Time: 04:42 05/13 03:29 Order name: Troponin (emerg Dept Use Only); Complete Time: 04:42 05/13 03:29 Order name: XRAY Chest (1 view) 05/13 03:29 Order name: EKG; Complete Time: 03:34 05/13 03:29 Order name: Cardiac monitoring; Complete Time: 03:37 05/13 03:29 Order name: EKG - Nurse/Tech; Complete Time: 03:37 05/13 03:29 Order name: IV Saline Lock; Complete Time: 03:45 05/13 03:29 Order name: Labs collected and sent; Complete Time: 03:45 05/13 03:29 Order name: O2 Per Protocol; Complete Time: 03:37 05/13 03:29 Order name: O2 Sat Monitoring; Complete Time: 03:37 gs EC:44 Rate is 89 beats/min. QRS [place] is Normal. [place] interval is normal. QRS interval is gs normal. No Q waves. T waves are Normal. No ST changes noted. Clinical impression: Normal ECG. Interpreted by me. Administered Medications: No medications were administered Disposition: 05/13/19 04:47 Discharged to Home. Impression: Dyspnea, Sleep apnea, unspecified. - Condition is Stable. - Discharge Instructions: Shortness of Breath, [id number]. - Medication Reconciliation Form, Thank You Letter, Antibiotic Education, Prescription Opioid Use form. - Follow up: Private Physician; When: 2 - 3 days; Reason: Re-evaluation by your physician. Signatures: Dispatcher [employer] Samra Singh RN RN Keila Collier RN RN ak1 Titus Sharma MD MD gs Corrections: (The following items were deleted from the chart) 05:00 04:47 05/13/2019 04:47 Discharged to Home. Impression: Dyspnea; Sleep apnea, ak1 unspecified. Condition is Stable. Forms are Medication Reconciliation Form, Thank You Letter, Antibiotic Education, Prescription Opioid Use. Follow up: Private Physician; When: 2 - 3 days; Reason: Re-evaluation by your physician. gs
--- NOTE | 2019-05-13 04:48 | ER ---
Nurse's Notes [facility] Name: Carl Sandy Age: 23 yrs Sex: Male : 1995 Arrival Date: 05/13/2019 Time: 03:16 Bed 7 Private MD: Diagnosis: Dyspnea;Sleep apnea, unspecified Presentation: 05/13 03:26 Presenting complaint: Patient states: he woke up gasping for air with chest pain which bb was like a "50" but chest pain has resolved now and he is just "shaking". Transition of care: patient was not received from another setting of care. Onset of symptoms was May 13, 2019. Risk Assessment: Do you want to hurt yourself or someone else? Patient reports no desire to harm self or others. Initial Sepsis Screen: Does the patient meet any 2 criteria? No. Patient's initial sepsis screen is negative. Does the patient have a suspected source of infection? No. Patient's initial sepsis screen is negative. Care prior to arrival: None. 03:26 Method Of Arrival: Ambulatory bb 03:26 Acuity: NICKY 3 bb Historical: - Allergies: 03:28 No Known Allergies; bb - Home Meds: 03:28 None [Active]; bb - PMHx: 03:28 Diabetes - NIDDM; Hypertension; bb 04:44 Sleep Apnea; gs - PSHx: 03:28 I\\T\\D; bb - Immunization history:: Adult Immunizations up to date. - Social history:: Smoking status: Patient/guardian denies using tobacco. - Ebola Screening: : No symptoms or risks identified at this time. Screenin:37 Abuse screen: Denies threats or abuse. Denies injuries from another. Nutritional ak1 screening: No deficits noted. Tuberculosis screening: No symptoms or risk factors identified. Fall Risk None identified. Assessment: 03:37 General: Appears in no apparent distress. comfortable, obese, Behavior is calm, ak1 cooperative. Pain: Denies pain. Neuro: Level of Consciousness is awake, alert, obeys commands, Oriented to person, place, time, situation, Auto Dealer are equal bilaterally Moves all extremities. Gait is steady, Speech is normal. Cardiovascular: Reports chest pain, shortness of breath, Heart tones S1 S2 present Rhythm is sinus rhythm. Respiratory: No deficits noted. Reports shortness of breath at rest Airway is patent Trachea midline Respiratory effort is even, unlabored, Respiratory pattern is regular, symmetrical, Breath sounds are clear bilaterally. GI: No signs and/or symptoms were reported involving the gastrointestinal system. : No signs and/or symptoms were reported regarding the genitourinary system. EENT: No signs and/or symptoms were reported regarding the EENT system. Derm: No signs and/or symptoms reported regarding the dermatologic system. Musculoskeletal: No signs and/or symptoms reported regarding the musculoskeletal system. 04:12 Reassessment: Patient appears in no apparent distress at this time. No changes from ak1 previously documented assessment. Patient and/or family updated on plan of care and expected duration. Pain level reassessed. Patient is alert, oriented x 3, equal unlabored respirations, skin warm/dry/pink. Vital Signs: 03:28 BP 158 / 96; Pulse 98; Resp 16 S; Temp 98.7(O); Pulse Ox 98% on R/A; Weight 104.33 kg bb (R); Height 5 ft. 7 in. (170.18 cm) (R); Pain 0/10; 04:00 BP 130 / 90; Pulse 91; Resp 16; Pulse Ox 97% on R/A; ak1 04:41 BP 131 / 74; Pulse 80; Resp 18; Pulse Ox 96% on R/A; ak1 03:28 Body Mass Index 36.02 (104.33 kg, 170.18 cm) bb ED Course: 03:16 Patient arrived in ED. cl3 03:17 Titus Sharma MD is Attending Physician. 03:24 Keila Centeno, RN is Primary Nurse. ak1 03:24 Patient has correct armband on for positive identification. Placed in gown. Bed in low ak1 position. Call light in reach. Side rails up X 1. Adult w/ patient. awake overnight monitor on. Pulse ox on. NIBP on. Door closed. Warm blanket given. 03:27 Triage completed. bb 03:28 Arm band placed on Patient placed in an exam room, on a stretcher, on pulse oximetry. bb Family accompanied patient. 03:39 X-ray completed. Portable x-ray completed in exam room. Patient tolerated procedure kw well. 03:43 XRAY Chest (1 view) In Process Unspecified. EDMS 03:45 Initial lab(s) drawn, by me, sent to lab. EKG done, by ED staff, reviewed by Titus Sharma MD. Inserted saline lock: 20 gauge in right antecubital area, using aseptic technique. Blood collected. 04:48 No provider procedures requiring assistance completed. ak1 05:00 IV discontinued, intact, bleeding controlled, No redness/swelling at site. Pressure ak1 dressing applied. Administered Medications: No medications were administered Outcome: 04:47 Discharge ordered by . 04:48 Discharged to home ambulatory, with family. ak1 04:48 Condition: stable 04:48 Discharge instructions given to patient, family, Instructed on discharge instructions, follow up and referral plans. Demonstrated understanding of instructions, follow-up care. 05:00 Patient left the ED. ak1 Signatures: Dispatcher [employer] EDMS Samra Malave, RN RN Kathleen Cazares Amber RN RN Titus Burgess MD MD gs Lewis, Charde cl3
[2019-05-13 05:11] VITALS: TEMP 98.7
[2019-05-13 05:12] VITALS: BP 131/74; O2SAT 96
--- NOTE | 2019-05-13 07:35 | EKG ---
Test Date: 2019-05-13 Test Time: 03:36:15 Central Office Supervisor: ORTEGA MEASUREMENT RESULTS: Intervals: Rate: 89 OR: 148 QRSD: 84 QT: 354 QTc: 430 [place]: P: 24 OR: 148 QRS: 44 T: 33 INTERPRETIVE STATEMENTS: Normal sinus rhythm with sinus arrhythmia Normal ECG No previous ECG available for comparison Electronically Signed On 05-13-19 07:35:18 CDT by Grant Guerra
--- NOTE | 2019-05-13 08:20 | RAD REPORT ---
EXAM DESCRIPTION: RAD - Chest Single View - 05/13/2019 3:42 am CLINICAL HISTORY: CHEST PAIN Chest pain. COMPARISON: CHEST PA AND LAT 2 VIEW dated 08/03/2015; CHEST SINGLE VIEW dated 12/31/2014 FINDINGS: Portable technique limits examination quality. The lungs are grossly clear. The heart is normal in size. No displaced fractures. IMPRESSION: No acute intrathoracic process suspected.
== END 2019-05-13 05:00 | disposition home or self-care (01) ==
LOC: ER 03:12
DX: R06.00 Dyspnea, unspecified (principal); G47.30 Sleep apnea, unspecified; E11.9 Type 2 diabetes mellitus without complications; I10 Essential (primary) hypertension
CPT/HCPCS: 36415; 71045; 80048; 84484; 85025; 93005; 99284

== ENCOUNTER 2019-08-21 15:01 | Emergency (ER) | payer SELFPAY ==
--- NOTE | 2019-08-21 16:47 | ER ---
Nurse's Notes [facility] Name: Carl Sandy Age: 24 yrs Sex: Male : 1995 Arrival Date: 08/21/2019 Time: 15:03 Bed 9 Private MD: Diagnosis: Laceration without foreign body of penis Presentation: 08/21 15:18 Presenting complaint: Patient states: "I googled it and it said I have a friction aj1 injury on my penis, but I was still having intercourse. At first it was like a slightly burned area, but I guess from doing it and doing it it just ripped so I have like a perfect cut around this ring. Its been cut cut since like Monday. I just needs like an antibiotic or an ointment or something" Denies any drainage from wound. Patient states that it hurts when he pees, but he is not having trouble urinating. Transition of care: patient was not received from another setting of care. Onset of symptoms was 2018. Risk Assessment: Do you want to hurt yourself or someone else? Patient reports no desire to harm self or others. Initial Sepsis Screen: Does the patient meet any 2 criteria? No. Patient's initial sepsis screen is negative. Does the patient have a suspected source of infection? Yes: Skin breakdown/wound. Care prior to arrival: None. 15:18 Method Of Arrival: Ambulatory [facility] 15:18 Acuity: NICKY 4 aj1 Triage Assessment: 15:19 General: Appears in no apparent distress. comfortable, Behavior is calm, cooperative, aj1 appropriate for age. Pain: Complains of pain in pelvis. Neuro: Level of Consciousness is awake, alert, obeys commands, Oriented to person, place, time, situation. Cardiovascular: Patient's skin is warm and dry. Respiratory: Airway is patent Respiratory effort is even, unlabored, Respiratory pattern is regular, symmetrical. Historical: - Allergies: 15:19 No Known Allergies; aj1 - Home Meds: 15:19 Amoxicillin Oral [Active]; aj1 - PMHx: 15:19 Diabetes - NIDDM; Hypertension; Sleep Apnea; aj1 - PSHx: 15:19 None; aj1 - Immunization history:: Flu vaccine is not up to date. - Social history:: Smoking status: Patient/guardian denies using tobacco. - Ebola Screening: : Patient denies travel to an Ebola-affected area in the 21 days before illness onset. Screenin:18 Abuse screen: Denies threats or abuse. Denies injuries from another. Nutritional ss screening: No deficits noted. Tuberculosis screening: Never had TB. Fall Risk None identified. Assessment: 16:18 General: Appears in no apparent distress. comfortable, Behavior is calm, cooperative. ss Pain: Complains of pain in head of penis Pain currently is 5 out of 10 on a pain scale. Quality of pain is described as tender. Neuro: Level of Consciousness is awake, alert, obeys commands, Oriented to person, place, time, situation. Cardiovascular: Capillary refill < 3 seconds is brisk in bilateral fingers. Respiratory: Airway is patent Respiratory effort is even, unlabored, Respiratory pattern is regular, symmetrical. GI: No signs and/or symptoms were reported involving the gastrointestinal system. : Reports small laceration to penis that was sustained over the weekend while having excessive intercourse. EENT: Oral mucosa is moist. Derm: Skin is intact, is healthy with good turgor, Skin is dry, Skin is pink, warm \\T\\ dry. normal. Musculoskeletal: Circulation, motion, and sensation intact. Range of motion: intact in all extremities, Swelling absent. Vital Signs: 15:19 BP 128 / 79; Pulse 110; Resp 18; Temp 98.3; Pulse Ox 97% on R/A; Weight 105.69 kg (R); aj1 Height 5 ft. 7 in. (170.18 cm) (R); Pain 5/10; 15:19 Body Mass Index 36.49 (105.69 kg, 170.18 cm) aj1 ED Course: 15:03 Patient arrived in ED. as 15:18 Triage completed. aj1 15:19 Arm band placed on Patient placed in waiting room, Patient notified of wait time. aj1 16:04 Jonas Lawrence PA is PHCP. jr8 16:04 Venita Chaves MD is Attending Physician. jr8 16:18 Patient has correct armband on for positive identification. Bed in low position. Call ss light in reach. 16:45 Twan Toth MD is Referral Physician. jr8 17:15 Keren Lawler RN is Primary Nurse. ss 17:15 No provider procedures requiring assistance completed. Patient did not have IV access ss during this emergency room visit. Administered Medications: No medications were administered Outcome: 16:46 Discharge ordered by MD. durant 17:15 Discharged to home ambulatory. 17:15 Condition: good 17:15 Discharge instructions given to patient, family, Instructed on discharge instructions, follow up and referral plans. Demonstrated understanding of instructions, follow-up care. 17:15 Patient left the ED. Signatures: Gill Ryan RN RN ajAdriana Crockett Shelby, RN RN Jonas Lawrence PA PA jr8
--- NOTE | 2019-08-21 16:47 | EDPHYS ---
Physician Documentation [facility] Name: Carl Sandy Age: 24 yrs Sex: Male : 1995 Arrival Date: 08/21/2019 Time: 15:03 Bed 9 Private MD: ED Physician Venita Chaves HPI: 08/21 16:38 This 24 yrs old Male presents to ER via Ambulatory with complaints of Penile jr8 Pain. 16:38 Onset: The symptoms/episode began/occurred gradually, 1 week(s) ago. Modifying factors: jr8 The symptoms are alleviated by nothing, the symptoms are aggravated by movement, sexual intercourse. Associated signs and symptoms: The patient has no apparent associated signs or symptoms. Severity of symptoms: At their worst the symptoms were mild, in the emergency department the symptoms are unchanged. The patient has experienced similar episodes in the past, a few times. The patient has not recently seen a physician. Patient stated that he had intercourse several days ago. Had abrasive tear near the glans penis that he has had before secondary to intercourse. Stated that it still hurts . Historical: - Allergies: 15:19 No Known Allergies; aj1 - Home Meds: 15:19 Amoxicillin Oral [Active]; aj1 - PMHx: 15:19 Diabetes - NIDDM; Hypertension; Sleep Apnea; aj1 - PSHx: 15:19 None; aj1 - Immunization history:: Flu vaccine is not up to date. - Social history:: Smoking status: Patient/guardian denies using tobacco. - Ebola Screening: : Patient denies travel to an Ebola-affected area in the 21 days before illness onset. ROS: 16:38 Constitutional: Negative for fever, chills, and weight loss. jr8 16:38 : Positive for penile pain, Negative for urinary symptoms. 16:38 All other systems are negative. Exam: 16:43 Cardiovascular: Regular rate and rhythm with a normal S1 and S2. No gallops, murmurs, jr8 or rubs. Normal PMI, no JVD. No pulse deficits. Respiratory: Lungs have equal breath sounds bilaterally, clear to auscultation and percussion. No rales, rhonchi or wheezes noted. No increased work of breathing, no retractions or nasal flaring. Abdomen/GI: Soft, non-tender, with normal bowel sounds. No distension or tympany. No guarding or rebound. No evidence of tenderness throughout. Back: No spinal tenderness. No costovertebral tenderness. Full range of motion. Skin: Warm, dry with normal turgor. Normal color with no rashes, no lesions, and no evidence of cellulitis. MS/ Extremity: Pulses equal, no cyanosis. Neurovascular intact. Full, normal range of motion. Neuro: Awake and alert, GCS 15, oriented to person, place, time, and situation. Cranial nerves II-XII grossly intact. Motor strength 5/5 in all extremities. Sensory grossly intact. Cerebellar exam normal. Normal gait. 16:43 : Male external genitalia: superficial tear to anterior glans. No active bleeding or swelling. No erythema . Vital Signs: 15:19 BP 128 / 79; Pulse 110; Resp 18; Temp 98.3; Pulse Ox 97% on R/A; Weight 105.69 kg (R); aj1 Height 5 ft. 7 in. (170.18 cm) (R); Pain 5/10; 15:19 Body Mass Index 36.49 (105.69 kg, 170.18 cm) aj1 MDM: 16:26 Patient medically screened. [facility] 16:43 Data reviewed: vital signs, nurses notes, and as a result, I will discharge patient. [facility] Data interpreted: Pulse oximetry: on room air is 97 %. Interpretation: normal. Counseling: I had a detailed discussion with the patient and/or guardian regarding: the historical points, exam findings, and any diagnostic results supporting the discharge/admit diagnosis, the need for outpatient follow up, a urologist, to return to the emergency department if symptoms worsen or persist or if there are any questions or concerns that arise at home. ED course: Discussed with patient that he needs to clean wound daily and keep dry. Neosporin to affected area . Administered Medications: No medications were administered Disposition: 17:49 Co-signature as Attending Physician, Venita Chaves MD. ma2 Disposition: 08/21/19 16:46 Discharged to Home. Impression: Laceration without foreign body of penis. - Condition is Stable. - Discharge Instructions: Laceration Care, Adult. - Medication Reconciliation Form, Thank You Letter, Antibiotic Education, Prescription Opioid Use form. - Follow up: Twan Toth MD; When: 1 week; Reason: Wound Recheck, Recheck today's complaints, Continuance of care, Re-evaluation by your physician. - Problem is new. - Symptoms have improved. Signatures: Gill Ryan RN RN aj1 Keren Lawler RN RN ss Jonas Lawrence, SHANTELL STINSON jr8 Venita Chaves MD MD ma2 Corrections: (The following items were deleted from the chart) 17:15 16:46 08/21/2019 16:46 Discharged to Home. Impression: Laceration without foreign body ss of penis. Condition is Stable. Forms are Medication Reconciliation Form, Thank You Letter, Antibiotic Education, Prescription Opioid Use. Follow up: Twan Toth; When: 1 week; Reason: Wound Recheck, Recheck today's complaints, Continuance of care, Re-evaluation by your physician. Problem is new. Symptoms have improved. jr8
[2019-08-21 18:15] VITALS: BP 128/79; TEMP 98.3; O2SAT 97
== END 2019-08-21 17:15 | disposition home or self-care (01) ==
LOC: ER 15:01
DX: S31.21XA Laceration without foreign body of penis, initial encounter (principal); I10 Essential (primary) hypertension
CPT/HCPCS: 99281

== ENCOUNTER 2019-10-10 23:57 | Emergency (ER) | payer SELFPAY ==
[2019-10-11] MEDS ORDERED: IBUPROFEN 400 MG TAB ONE (00:38)
[2019-10-11] MEDS ORDERED: IBUPROFEN 200 MG TAB PO ONE (00:38)
[2019-10-11] MEDS ORDERED: LEVALBUTEROL 1.25 MG/3 ML NEB ONE (00:51)
--- NOTE | 2019-10-11 01:29 | ER ---
Nurse's Notes [facility] Name: Carl Sandy Age: 24 yrs Sex: Male : 1995 Arrival Date: 10/10/2019 Time: 23:59 Bed 6 Private MD: Diagnosis: Acute upper respiratory infection, unspecified;Acute pharyngitis Presentation: 10/11 00:14 Presenting complaint: Patient states: he has had a sore throat since , then bb started coughing since Monday and yesterday he had a temp of 102. Transition of care: patient was not received from another setting of care. Onset of symptoms was October 07, 2019. Risk Assessment: Do you want to hurt yourself or someone else? Patient reports no desire to harm self or others. Initial Sepsis Screen: Does the patient meet any 2 criteria? No. Patient's initial sepsis screen is negative. Does the patient have a suspected source of infection? No. Patient's initial sepsis screen is negative. Care prior to arrival: None. 00:14 Method Of Arrival: Ambulatory bb 00:14 Acuity: NICKY 4 bb Historical: - Allergies: 00:16 No Known Allergies; bb - Home Meds: 00:16 None [Active]; bb - PMHx: 00:16 Diabetes - NIDDM; Hypertension; Sleep Apnea; ADD/ADHD; bb - PSHx: 00:16 None; bb - Immunization history:: Adult Immunizations up to date. - Social history:: Smoking status: Patient uses tobacco products, smokes one-half pack cigarettes per day, Patient uses alcohol, occasionally. Patient/guardian denies using street drugs. - Ebola Screening: : No symptoms or risks identified at this time. Screenin:46 Abuse screen: Denies threats or abuse. Nutritional screening: No deficits noted. jd3 Tuberculosis screening: No symptoms or risk factors identified. Fall Risk Ambulatory Aid- None/Bed Rest/Nurse Assist (0 pts). Gait- Normal/Bed Rest/Wheelchair (0 pts) Mental Status- Oriented to own ability (0 pts). Total López Fall Scale indicates No Risk (0-24 pts). Assessment: 00:45 General: Appears in no apparent distress. uncomfortable, Behavior is calm, cooperative, jd3 appropriate for age. Pain: Complains of pain in diaphragm and throat Quality of pain is described as aching. Neuro: Level of Consciousness is awake, alert, obeys commands, Oriented to person, place, time, situation. Cardiovascular: Capillary refill < 3 seconds Patient's skin is warm and dry. Respiratory: Reports cough that is persistent Airway is patent Respiratory effort is even, unlabored, Respiratory pattern is regular, symmetrical, Breath sounds are clear bilaterally. GI: No signs and/or symptoms were reported involving the gastrointestinal system. : No signs and/or symptoms were reported regarding the genitourinary system. EENT: Throat is reddened. Derm: Skin is intact, Skin is dry, Skin is normal, Skin temperature is warm. Musculoskeletal: Circulation, motion, and sensation intact. Range of motion: intact in all extremities. 01:46 Reassessment: Patient appears in no apparent distress at this time. Patient and/or jd3 family updated on plan of care and expected duration. Pain level reassessed. Patient is alert, oriented x 3, equal unlabored respirations, skin warm/dry/pink. Patient states feeling better. Vital Signs: 00:16 BP 142 / 99; Pulse 114; Resp 14 S; Temp 98.3(O); Pulse Ox 99% on R/A; Weight 102.51 kg bb (R); Height 5 ft. 7 in. (170.18 cm) (R); Pain 8/10; 01:46 BP 111 / 63; Pulse 108; Resp 15 S; Pulse Ox 99% on R/A; jd3 00:16 Body Mass Index 35.40 (102.51 kg, 170.18 cm) ED Course: 10/10 23:59 Patient arrived in ED. cl3 10/11 00:01 Angel Hutchison PA is PHCP. jmm 00:02 Emanuel Khalil MD is Attending Physician. jmm 00:15 Triage completed. bb 00:16 Arm band placed on Patient placed in an exam room, on a stretcher, on pulse oximetry. bb Family accompanied patient. 00:35 Milton Umanzor RN is Primary Nurse. jd3 00:47 Patient has correct armband on for positive identification. Bed in low position. Call jd3 light in reach. Side rails up X 1. Adult w/ patient. 01:46 No provider procedures requiring assistance completed. Patient did not have IV access jd3 during this emergency room visit. Administered Medications: 00:39 Drug: Motrin 600 mg Route: PO; jd3 01:30 Follow up: Response: No adverse reaction jd3 00:52 Drug: Xopenex (3) 1.25 mg Route: Inhalation; jd3 01:50 Follow up: Response: No adverse reaction jd3 Outcome: 01:28 Discharge ordered by . maynor 01:50 Discharged to home ambulatory, with family. jd3 01:50 Condition: stable 01:50 Discharge instructions given to patient, Instructed on discharge instructions, follow up and referral plans. medication usage, Demonstrated understanding of instructions, follow-up care, medications. 01:51 Patient left the ED. jd3 Signatures: Angel Hutchison PA PA jmm Ballard, Brenda, RN RN Milton Ellis RN RN Sla Wagoner cl3
--- NOTE | 2019-10-11 01:29 | EDPHYS ---
Physician Documentation [facility] Name: Carl Sandy Age: 24 yrs Sex: Male : 1995 Arrival Date: 10/10/2019 Time: 23:59 Bed 6 Private MD: ED Physician Emanuel Khalil HPI: 10/11 00:24 This 24 yrs old Male presents to ER via Ambulatory with complaints of Painful jmm Cough, Sore Throat. 00:24 The patient or guardian reports cough. Onset: The symptoms/episode began/occurred jmm gradually, 1 week(s) ago. Modifying factors: The symptoms are alleviated by nothing, the symptoms are aggravated by nothing. Associated signs and symptoms: Pertinent positives: fever, sore throat. This is a 24 year old male with no chronic medical conditions that presents to the ED with complaints of sore throat cough for the past week. GF had similar symptoms previously. . Historical: - Allergies: 00:16 No Known Allergies; bb - Home Meds: 00:16 None [Active]; bb - PMHx: 00:16 Diabetes - NIDDM; Hypertension; Sleep Apnea; ADD/ADHD; bb - PSHx: 00:16 None; bb - Immunization history:: Adult Immunizations up to date. - Social history:: Smoking status: Patient uses tobacco products, smokes one-half pack cigarettes per day, Patient uses alcohol, occasionally. Patient/guardian denies using street drugs. - Ebola Screening: : No symptoms or risks identified at this time. ROS: 00:24 Constitutional: Positive for body aches, chills, fever. jmm 00:24 ENT: Positive for sore throat. 00:24 Respiratory: Positive for cough. 00:24 All other systems are negative. Exam: 00:24 Constitutional: This is a well developed, well nourished patient who is awake, alert, jmm and in no acute distress. Head/Face: atraumatic. Eyes: EOMI, no conjunctival erythema appreciated 00:24 Neck: Trachea midline, Supple Chest/axilla: Normal chest wall appearance and motion. 00:24 Respiratory: Normal respirations, no respiratory distress appreciated Abdomen/GI: Non distended, soft Back: Normal ROM Skin: General appearance color normal MS/ Extremity: Moves all extremities, no obvious deformities appreciated, no edema noted to the lower extremities Neuro: Awake and alert, normal gait Psych: Behavior is normal, Mood is normal, Patient is cooperative and pleasant 00:24 ENT: Posterior pharynx: erythema, that is mild. 00:24 Cardiovascular: Rate: tachycardic, Rhythm: regular, Pulses: no pulse deficits are appreciated. 00:24 Respiratory: the patient does not display signs of respiratory distress, Respirations: normal, Breath sounds: are clear throughout. Vital Signs: 00:16 BP 142 / 99; Pulse 114; Resp 14 S; Temp 98.3(O); Pulse Ox 99% on R/A; Weight 102.51 kg bb (R); Height 5 ft. 7 in. (170.18 cm) (R); Pain 8/10; 01:46 BP 111 / 63; Pulse 108; Resp 15 S; Pulse Ox 99% on R/A; jd3 00:16 Body Mass Index 35.40 (102.51 kg, 170.18 cm) bb MDM: 00:22 Patient medically screened. [facility] 01:27 Data reviewed: vital signs, nurses notes. Counseling: I had a detailed discussion with maynor the patient and/or guardian regarding: the historical points, exam findings, and any diagnostic results supporting the discharge/admit diagnosis, lab results, the need for outpatient follow up, to return to the emergency department if symptoms worsen or persist or if there are any questions or concerns that arise at home. ED course: Patient states feeling better after neb. Strep negative. Patient advised to follow up with pcp and otherwise given strict return precautions. Patient understood and agrees with the plan of care. . 10/11 00:09 Order name: Strep; Complete Time: 00:56 [facility] 10/11 00:51 Order name: Throat Culture EDMS Administered Medications: 00:39 Drug: Motrin 600 mg Route: PO; jd3 01:30 Follow up: Response: No adverse reaction jd3 00:52 Drug: Xopenex (3) 1.25 mg Route: Inhalation; jd3 01:50 Follow up: Response: No adverse reaction jd3 Disposition: 03:28 Co-signature as Attending Physician, Emanuel Khalil MD. pkl Disposition: 10/11/19 01:28 Discharged to Home. Impression: Acute upper respiratory infection, unspecified, Acute pharyngitis. - Condition is Stable. - Discharge Instructions: Pharyngitis. - Prescriptions for Zithromax Z- Chauncey 250 mg Oral Tablet - take 1 tablet by ORAL route as directed for 5 days Day 1 - take two (2) tablets one time. Day 2, 3, 4 , 5 take one (1) tablet once daily.; 6 tablet. Albuterol Sulfate 90 mcg/actuation - inhale 1-2 puff by INHALATION route every 4-6 hours; 1 Inhaler. - Medication Reconciliation Form, Thank You Letter, Antibiotic Education, Prescription Opioid Use form. - Follow up: Private Physician; When: 2 - 3 days; Reason: Recheck today's complaints, Continuance of care, Re-evaluation by your physician. Signatures: Dispatcher [employer] EDMS Emanuel Khalil MD MD pkl Mickail, Joel, PA PA jmm Ballard, Brenda, RN RN Milton Ellis RN RN jd3 Corrections: (The following items were deleted from the chart) 01:51 01:28 10/11/2019 01:28 Discharged to Home. Impression: Acute upper respiratory jd3 infection, unspecified; Acute pharyngitis. Condition is Stable. Forms are Medication Reconciliation Form, Thank You Letter, Antibiotic Education, Prescription Opioid Use. Follow up: Private Physician; When: 2 - 3 days; Reason: Recheck today's complaints, Continuance of care, Re-evaluation by your physician. maynor
[2019-10-11 02:16] VITALS: BP 111/63; O2SAT 99
[2019-10-11 02:18] VITALS: TEMP 98.3
== END 2019-10-11 01:51 | disposition home or self-care (01) ==
LOC: ER 23:57
DX: J06.9 Acute upper respiratory infection, unspecified (principal); J02.9 Acute pharyngitis, unspecified; F17.210 Nicotine dependence, cigarettes, uncomplicated
CPT/HCPCS: 87070; 87081; 99284

== ENCOUNTER 2021-02-04 17:02 | Emergency (ER) | payer SELFPAY ==
[2021-02-04] MEDS ORDERED: AZITHROMYCIN 250 MG TAB ONE (19:54)
[2021-02-04] MEDS ORDERED: BENZONATATE 100 MG CAP PO ONE (20:14)
--- NOTE | 2021-02-04 21:32 | RAD REPORT ---
EXAM DESCRIPTION: Cris Single View02/04/2021 9:16 pm CLINICAL HISTORY: Cough COMPARISON: 1999 FINDINGS: Lungs are mildly hazy. Heart is normal size IMPRESSION: Lungs are mildly hazy which may indicate mild pneumonia
--- NOTE | 2021-02-04 22:06 | EDPHYS ---
Physician Documentation [facility] Name: Carl Sandy Age: 25 yrs Sex: Male : 1995 Arrival Date: 02/04/2021 Time: 17:04 Bed 16 Private MD: ED Physician Miguel Shelton HPI: 02/04 19:50 This 25 yrs old Male presents to ER via Ambulatory with complaints of Covid + cp - Cough. Historical: - Allergies: 17:49 No Known Allergies; ca1 - PMHx: 17:49 ADD/ADHD; Hypertension; Diabetes - NIDDM; Sleep Apnea; ca1 - PSHx: 17:49 None; ca1 - Immunization history:: Flu vaccine is not up to date. - Social history:: Smoking status: Patient reports the use of cigarette tobacco products, smokes one-half pack cigarettes per day. ROS: 20:00 Constitutional: Negative for body aches, chills, fever, poor PO intake. cp 20:00 Eyes: Negative for injury, pain, redness, and discharge. cp 20:00 Cardiovascular: Negative for chest pain, edema, palpitations. 20:00 Respiratory: Positive for cough, "sounds productive", Negative for shortness of breath, wheezing. Exam: 20:05 Constitutional: The patient appears in no acute distress, alert, awake, cp non-diaphoretic, non-toxic, well developed, well nourished. 20:05 Head/Face: Normocephalic, atraumatic. cp 20:05 Eyes: Periorbital structures: appear normal, Conjunctiva: normal, no exudate, no injection, Sclera: no appreciated abnormality, Lids and lashes: appear normal, bilaterally. 20:05 ENT: External ear(s): are unremarkable, Ear canal(s): are normal, clear, TM's: dullness, bilaterally, Nose: is normal, Mouth: Lips: moist, Oral mucosa: pink and intact, moist, Posterior pharynx: Airway: no evidence of obstruction, patent, Tonsils: no enlargement, no erythema, no exudate, erythema, is not appreciated, exudate, is not appreciated. 20:05 Neck: ROM/movement: is normal, is supple, without pain, no range of motions limitations, no meningismus. 20:05 Chest/axilla: Inspection: normal, Palpation: is normal, no crepitus, no tenderness. 20:05 Cardiovascular: Rate: tachycardic, Rhythm: regular, Edema: is not appreciated, JVD: is not appreciated. 20:05 Respiratory: the patient does not display signs of respiratory distress, Respirations: normal, no use of accessory muscles, no retractions, labored breathing, is not present, Breath sounds: bronchial sounds, that are mild, are heard diffusely, decreased breath sounds, are not appreciated, stridor, is not appreciated, wheezing: is not appreciated. 20:05 Abdomen/GI: Exam negative for discomfort, distension, guarding, Inspection: abdomen appears normal. Vital Signs: 17:44 BP 126 / 97; Pulse 111; Resp 18 S; Temp 98.4(O); Pulse Ox 100% on R/A; Weight 120.2 kg ca1 (R); Height 5 ft. 7 in. (170.18 cm) (R); Pain 0/10; 21:00 BP 121 / 85; Pulse 110; Resp 19; Pulse Ox 98% ; rr5 22:00 BP 115 / 70; Pulse 95; Resp 18; Pulse Ox 98% ; rr5 17:44 Body Mass Index 41.50 (120.20 kg, 170.18 cm) ca1 MDM: 19:20 Patient medically screened. cp 22:05 Data reviewed: vital signs, nurses notes, radiologic studies, plain films. cp 22:05 Test interpretation: by ED physician or midlevel provider: plain radiologic studies. cp Counseling: I had a detailed discussion with the patient and/or guardian regarding: the historical points, exam findings, and any diagnostic results supporting the discharge/admit diagnosis, radiology results, to return to the emergency department if symptoms worsen or persist or if there are any questions or concerns that arise at home. ED course: VSS. Patient appears non-toxic and no signs of respiratory distress noted. Will discharge to home for continued monitoring. 02/04 19:45 Order name: XRAY Chest (1 view); Complete Time: 21:51 cp 02/04 21:51 Interpretation: Report reviewed. cp Administered Medications: 19:59 Drug: Tessalon Perle (benzonatate) 200 mg Route: PO; rr5 20:00 Follow up: Response: No adverse reaction rr5 Disposition: 02/05 06:34 Co-signature as Attending Physician, Miguel Shelton MD. [email or web address] Disposition: 02/04/21 22:05 Discharged to Home. Impression: Other viral pneumonia. - Condition is Stable. - Discharge Instructions: COVID-19. - Prescriptions for Tessalon Perles 100 mg Oral Capsule - take 2 capsule by ORAL route every 8 hours As needed; 30 capsule. Zithromax Z- Chauncey 250 mg Oral Tablet - take 1 tablet by ORAL route as directed for 5 days Day 1 - take two (2) tablets one time. Day 2, 3, 4 , 5 take one (1) tablet once daily.; 6 tablet. Prednisone 20 mg Oral Tablet - take 2 tablet by ORAL route once daily for 5 days; 10 tablet. Albuterol Sulfate 90 mcg/actuation - inhale 1-2 puff by INHALATION route every 4-6 hours; 1 Inhaler. - Medication Reconciliation Form, Thank You Letter, Antibiotic Education, Prescription Opioid Use, Work release form form. - Follow up: Private Physician; When: 2 - 3 days; Reason: Worsening of condition. - Problem is an ongoing problem. - Symptoms have improved. Signatures: Dispatcher [employer] EDMS Cj Wilson PA PA cp Roque, Raymond, RN RN rr5 Neelima Baird RN RN [facility] Miguel Shelton MD MD [email or web address] Corrections: (The following items were deleted from the chart) 02/04 22:27 22:05 02/04/2021 22:05 Discharged to Home. Impression: Other viral pneumonia. Condition rr5 is Stable. Forms are Medication Reconciliation Form, Thank You Letter, Antibiotic Education, Prescription Opioid Use. Follow up: Private Physician; When: 2 - 3 days; Reason: Worsening of condition. Problem is an ongoing problem. Symptoms have improved. cp
--- NOTE | 2021-02-04 22:06 | ER ---
Nurse's Notes [facility] Name: Carl Sandy Age: 25 yrs Sex: Male : 1995 Arrival Date: 02/04/2021 Time: 17:04 Bed 16 Private MD: Diagnosis: Other viral pneumonia Presentation: 02/04 17:44 Chief complaint: Patient states: Covid+ on 01/27/2021 and 02/03/2021. Cough worse when ca1 laying down. Coronavirus screen: Client reports previous positive COVID test result. Date of collection: February 03, 2021. Ebola Screen: Patient negative for fever greater than or equal to 101.5 degrees Fahrenheit, and additional compatible Ebola Virus Disease symptoms Patient denies exposure to infectious person. Patient denies travel to an Ebola-affected area in the 21 days before illness onset. No symptoms or risks identified at this time. Initial Sepsis Screen: Does the patient meet any 2 criteria? No. Patient's initial sepsis screen is negative. Does the patient have a suspected source of infection? No. Patient's initial sepsis screen is negative. Risk Assessment: Do you want to hurt yourself or someone else? Patient reports no desire to harm self or others. Onset of symptoms was February 04, 2021. 17:44 Method Of Arrival: Ambulatory ca1 17:44 Acuity: NICKY 3 ca1 Historical: - Allergies: 17:49 No Known Allergies; ca1 - PMHx: 17:49 ADD/ADHD; Hypertension; Diabetes - NIDDM; Sleep Apnea; ca1 - PSHx: 17:49 None; ca1 - Immunization history:: Flu vaccine is not up to date. - Social history:: Smoking status: Patient reports the use of cigarette tobacco products, smokes one-half pack cigarettes per day. Screenin:00 Abuse screen: Denies threats or abuse. Denies injuries from another. Nutritional rr5 screening: No deficits noted. Tuberculosis screening: No symptoms or risk factors identified. Fall Risk None identified. Total López Fall Scale indicates No Risk (0-24 pts). Assessment: 20:00 General: Appears in no apparent distress. comfortable, Behavior is calm, cooperative, rr5 appropriate for age. Pain: Denies pain. Neuro: Level of Consciousness is awake, alert, obeys commands, Oriented to person, place, time. Cardiovascular: Capillary refill < 3 seconds Patient's skin is warm and dry. Respiratory: Reports cough that is Airway is patent Respiratory effort is even, unlabored, Respiratory pattern is regular, symmetrical. GI: No signs and/or symptoms were reported involving the gastrointestinal system. : No signs and/or symptoms were reported regarding the genitourinary system. EENT: No signs and/or symptoms were reported regarding the EENT system. Derm: Skin is intact, is healthy with good turgor, Skin temperature is warm. Musculoskeletal: Capillary refill < 3 seconds. 21:10 Reassessment: Patient appears in no apparent distress at this time. Patient is alert, rr5 oriented x 3, equal unlabored respirations, skin warm/dry/pink. xray taken at bedside. 22:26 Reassessment: Patient appears in no apparent distress at this time. Patient is alert, rr5 oriented x 3, equal unlabored respirations, skin warm/dry/pink. discharge instruction given and explained without complaints made. Vital Signs: 17:44 BP 126 / 97; Pulse 111; Resp 18 S; Temp 98.4(O); Pulse Ox 100% on R/A; Weight 120.2 kg ca1 (R); Height 5 ft. 7 in. (170.18 cm) (R); Pain 0/10; 21:00 BP 121 / 85; Pulse 110; Resp 19; Pulse Ox 98% ; rr5 22:00 BP 115 / 70; Pulse 95; Resp 18; Pulse Ox 98% ; rr5 17:44 Body Mass Index 41.50 (120.20 kg, 170.18 cm) ca1 ED Course: 17:04 Patient arrived in ED. ds1 17:47 Triage completed. ca1 17:49 Arm band placed on right wrist. ca1 19:18 Cj Wilson PA is PHCP. cp 19:18 Miugel Shelton MD is Attending Physician. cp 19:48 Yoandy Aggarwal, AMOR is Primary Nurse. rr5 20:00 Patient has correct armband on for positive identification. Call light in reach. rr5 21:12 No provider procedures requiring assistance completed. rr5 21:16 XRAY Chest (1 view) In Process Unspecified. EDMS 22:25 Patient did not have IV access during this emergency room visit. rr5 Administered Medications: 19:59 Drug: Tessalon Perle (benzonatate) 200 mg Route: PO; rr5 20:00 Follow up: Response: No adverse reaction rr5 Outcome: 22:05 Discharge ordered by . eva 22:25 Discharged to home ambulatory. rr5 22:25 Condition: stable 22:25 Discharge instructions given to patient, Instructed on discharge instructions, follow up and referral plans. medication usage, Demonstrated understanding of instructions, follow-up care, medications, Prescriptions given X 4. 22:27 Patient left the ED. rr5 Signatures: Dispatcher [employer] [facility] Oneida Espinosa ds1 Cj Wilson PA PA cp Roque, Raymond, RN RN rr5 Neelima Baird RN RN ca1
[2021-02-04 22:45] VITALS: TEMP 98.4
[2021-02-04 22:47] VITALS: O2SAT 98
[2021-02-04 22:48] VITALS: BP 115/70
== END 2021-02-04 22:27 | disposition home or self-care (01) ==
LOC: ER 17:02
DX: J12.89 Other viral pneumonia (principal); Z86.16 Personal history of COVID-19; I10 Essential (primary) hypertension; F17.210 Nicotine dependence, cigarettes, uncomplicated
CPT/HCPCS: 71045; 99283

== ENCOUNTER 2021-05-30 02:31 | Emergency (ER) | payer SELFPAY ==
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
[2021-05-30 03:42] VITALS: BP 138/75; TEMP 97.1; O2SAT 98
== END 2021-05-30 03:38 | disposition left against medical advice (07) ==
LOC: ER 02:31
DX: Z53.21 Procedure and treatment not carried out due to patient leaving prior to being seen by health care provider (principal)
CPT/HCPCS: 99282

== ENCOUNTER 2022-06-22 01:11 | Observation (INO) | payer SELFPAY ==
[2022-06-22 02:51] LABS: Urine Blood Negative (Negative); Urine Glucose 2+ (Negative); Urine Protein Trace (Negative); Urine Specific Gravity 1.015 (1.005-1.030); Urine pH 5.5 (5.0-7.0)
[2022-06-22] MEDS ORDERED: MORPHINE 4 MG/ML SYR ONE ×2 (02:58→09:18)
[2022-06-22 03:06] LABS: Absolute Lymphocytes (CBC) 2.4 K/uL (0.7-4.9); Hematocrit 50.6 % (39.6-49.0); MCV 78.6 fL (80-100); MPV 8.4 fL (7.6-11.3); RBC Red Blood Cell Count 6.44 M/uL (4.33-5.43)
[2022-06-22 03:09] LABS: Urine Mucus Slight /HPF (None Seen)
[2022-06-22 03:47] LABS: Albumin 4.1 g/dL (3.4-5.0); Potassium 3.8 mmol/L (3.5-5.1); Protein, Total 8.1 g/dL (6.4-8.2)
--- NOTE | 2022-06-22 05:01 | EDPHYS ---
Physician Documentation [facility] Name: Carl Sandy Age: 27 yrs Sex: Male : 1995 Arrival Date: 06/22/2022 Time: 01:13 Bed 19 Private MD: ED Physician Song Hernandez HPI: 06/22 07:43 This 27 yrs old Male presents to ER via Ambulatory with complaints of ms3 Abdominal Pain. 07:43 27-year-old male with past medical history of hypertension, sleep apnea, diabetes, ms3 ADD/ADHD presents for right lower quadrant abdominal pain for 10 hours prior to arrival. Patient states pain is a 6/10 described as being sharp.. Historical: - Allergies: 01:52 No Known Allergies; as6 - Home Meds: 01:52 None [Active]; as6 - PMHx: 01:52 ADD/ADHD; Diabetes - NIDDM; Hypertension; Sleep Apnea; as6 - PSHx: 01:52 None; as6 - Immunization history:: Client reports having NOT received the Covid vaccine. - Social history:: Smoking status: Patient denies any tobacco usage or history of. ROS: 07:43 Constitutional: Negative for fever, and chills. Neck: Negative for injury, pain, and ms3 swelling, Cardiovascular: Negative for chest pain, and palpitations. Respiratory: Negative for shortness of breath, cough, wheezing, and pleuritic chest pain. 07:43 MS/Extremity: Negative for injury and deformity, Skin: Negative for injury, rash, and discoloration, Neuro: Negative for headache, weakness, numbness, tingling. 07:43 Abdomen/GI: Positive for abdominal pain. 07:43 All other systems are negative. Exam: 07:43 Constitutional: This is a well developed, well nourished patient who is awake, alert, ms3 and in no acute distress. Neck: Trachea midline, no cervical lymphadenopathy. Supple, full range of motion without nuchal rigidity, or vertebral point tenderness. No Meningismus. Chest/axilla: Normal chest wall appearance and motion. Nontender with no deformity. Cardiovascular: Regular rate and rhythm with a normal S1 and S2. No gallops, murmurs, or rubs. Normal PMI, no JVD. No pulse deficits. Respiratory: Lungs have equal breath sounds bilaterally, clear to auscultation and percussion. No rales, rhonchi or wheezes noted. No increased work of breathing, no retractions or nasal flaring. 07:43 MS/ Extremity: Pulses equal, no cyanosis. Neurovascular intact. Full, normal range of motion. Psych: Awake, alert, with orientation to person, place and time. Behavior, mood, and affect are within normal limits. 07:43 Abdomen/GI: Inspection: abdomen appears normal, Bowel sounds: normal, Palpation: moderate abdominal tenderness. Vital Signs: 01:49 BP 132 / 79; Pulse 117; Resp 18 S; Temp 98.2(TE); Pulse Ox 97% on R/A; Weight 103.42 kg as6 (R); Height 5 ft. 6 in. (167.64 cm) (R); Pain 5/10; 02:50 BP 152 / 99; Pulse 99; Resp 17; Pulse Ox 98% ; Pain 0/10; jj7 04:00 BP 150 / 89; Pulse 97; Resp 17; Pulse Ox 99% ; Pain 0/10; jj7 05:07 BP 142 / 78; Pulse 96; Resp 18; Pulse Ox 99% ; Pain 0/10; jj7 01:49 Body Mass Index 36.80 (103.42 kg, 167.64 cm) as6 MDM: 02:48 Patient medically screened. ms3 07:43 Differential diagnosis: appendicitis, bowel obstruction, diverticulitis. Data reviewed: ms3 vital signs, nurses notes, lab test result(s), radiologic studies, and as a result, I will admit patient. Counseling: I had a detailed discussion with the patient and/or guardian regarding: the historical points, exam findings, and any diagnostic results supporting the discharge/admit diagnosis, lab results, radiology results, the need for further work-up and treatment in the hospital. ED course: Case was discussed with Dr Valdivia overnight and patient was made NPO and prn pain medications were ordered.. 06/22 01:29 Order name: CBC with Diff; Complete Time: 03:56 ms3 06/22 01:29 Order name: CMP; Complete Time: 03:56 ms3 06/22 01:29 Order name: Lipase; Complete Time: 03:56 ms3 06/22 01:29 Order name: Urine Microscopic Only; Complete Time: 03:56 ms3 06/22 02:51 Order name: Urine Dipstick-Ancillary; Complete Time: 03:56 EDMS 06/22 05:13 Order name: CREATININE WHOLE BLOOD; Complete Time: 05:18 EDMS 06/22 01:29 Order name: CT Abd/Pelvis - IV Contrast Only ms3 06/22 06:00 Order name: SARS RAPID bb 06/22 06:32 Order name: SARS-COV-2 Antigen Rapid; Complete Time: 07:00 EDMS 06/22 07:30 Order name: Glucose, Ancillary Testing; Complete Time: 07:42 EDMS 06/22 12:04 Order name: Glucose, Ancillary Testing EDMS 06/22 01:29 Order name: IV Saline Lock; Complete Time: 02:56 ms3 06/22 01:29 Order name: Labs collected and sent; Complete Time: 02:56 ms3 06/22 01:29 Order name: Urine Dipstick-Ancillary (obtain specimen); Complete Time: 02:56 ms3 06/22 05:12 Order name: NPO; Complete Time: 07:19 EDMS 06/22 05:14 Order name: NPO; Complete Time: 07:19 EDMS 06/22 07:00 Order name: Fingerstick Glucose; Complete Time: 07:18 ms3 Administered Medications: 02:56 Not Given (Patient Refused): morphine 4 mg IVP once over 4 mins jj7 05:27 Drug: LevaQUIN (levofloxacin) 750 mg Route: IVPB; Site: left antecubital; jj7 06:10 Drug: Insulin Regular Human 5 units {Co-Signature: [email or web address] (Lida Ryan RN).} Route: vc1 IVP; Site: left antecubital; 06:10 Drug: NS 0.9% 1000 ml Route: IV; Rate: 1000 ml; Site: left antecubital; jj7 Disposition Summary: 06/22/22 05:00 Hospitalization Ordered Hospitalization Status: Observation ms3 Provider: Cali Valdivia ms3 Condition: Stable ms3 Problem: new ms3 Symptoms: are unchanged ms3 Bed/Room Type: Standard ms3 Location: [facility] ER HOLD(06/22/22 06:10) eb1 Room Assignment: ERHOLD-(06/22/22 06:10) eb1 Diagnosis - Acute appendicitis with localized peritonitis ms3 - Abdominal pain, Generalized ms3 - Essential (primary) hypertension ms3 Discharge Instructions: - Discharge Summary Sheet wm Forms: - Medication Reconciliation Form ms3 - SBAR form ms3 - Family Work Release wm Signatures: Dispatcher [employer] EDEsmer Ruiz RN RN eb1 Song Hernandez, DO ms3 Tremaine Alves RN RN as6 Carmen Hall RN RN vc1 Lida Ryan RN RN jj7 Lida Ryan RN jj7 Corrections: (The following items were deleted from the chart) 06:10 05:00 Telemetry/MedSurg (observation) ms3 eb1 06:10 05:00 ms3 eb1
--- NOTE | 2022-06-22 05:01 | ER ---
Nurse's Notes [facility] Name: Carl Sandy Age: 27 yrs Sex: Male : 1995 Arrival Date: 06/22/2022 Time: 01:13 Bed 19 Private MD: Diagnosis: Acute appendicitis with localized peritonitis;Abdominal pain, Generalized;Essential (primary) hypertension Presentation: 06/22 01:49 Chief complaint: Patient states: "I'm having abdominal pain and when I googled it, I'm as6 worried it's my appendix". Coronavirus screen: At this time, the client does not indicate any symptoms associated with coronavirus-19. Ebola Screen: No symptoms or risks identified at this time. Initial Sepsis Screen: Does the patient meet any 2 criteria? No. Patient's initial sepsis screen is negative. Does the patient have a suspected source of infection? No. Patient's initial sepsis screen is negative. Risk Assessment: Do you want to hurt yourself or someone else? Patient reports no desire to harm self or others. Onset of symptoms was June 22, 2022 at 00:00. 01:49 Method Of Arrival: Ambulatory as6 01:49 Acuity: NICKY 3 as6 Triage Assessment: 02:59 General: Appears in no apparent distress. comfortable. jj7 03:00 General: Behavior is calm, cooperative, appropriate for age. jj7 Historical: - Allergies: 01:52 No Known Allergies; as6 - Home Meds: 01:52 None [Active]; as6 - PMHx: 01:52 ADD/ADHD; Diabetes - NIDDM; Hypertension; Sleep Apnea; as6 - PSHx: 01:52 None; as6 - Immunization history:: Client reports having NOT received the Covid vaccine. - Social history:: Smoking status: Patient denies any tobacco usage or history of. Screenin:58 Abuse screen: Denies threats or abuse. Nutritional screening: No deficits noted. jj7 Tuberculosis screening: No symptoms or risk factors identified. Fall Risk None identified. Assessment: 02:50 Pain: Denies pain. GI: Patient currently denies abdominal pain, pt states he currently jj7 doesn not have any abd pain but still would like the CT. 02:59 GI: Bowel sounds present X 4 quads. Abd is soft and non tender X 4 quads. jj7 Vital Signs: 01:49 BP 132 / 79; Pulse 117; Resp 18 S; Temp 98.2(TE); Pulse Ox 97% on R/A; Weight 103.42 kg as6 (R); Height 5 ft. 6 in. (167.64 cm) (R); Pain 5/10; 02:50 BP 152 / 99; Pulse 99; Resp 17; Pulse Ox 98% ; Pain 0/10; jj7 04:00 BP 150 / 89; Pulse 97; Resp 17; Pulse Ox 99% ; Pain 0/10; jj7 05:07 BP 142 / 78; Pulse 96; Resp 18; Pulse Ox 99% ; Pain 0/10; jj7 01:49 Body Mass Index 36.80 (103.42 kg, 167.64 cm) as6 ED Course: 01:13 Patient arrived in ED. bp1 01:16 Sogn Hernandez DO is Attending Physician. ms3 01:52 Triage completed. as6 01:52 Arm band placed on. as6 02:50 Inserted saline lock: 20 gauge in left antecubital area, using aseptic technique. jj7 02:53 Initial lab(s) drawn, by me, sent to lab. Urine collected: clean catch specimen, wm cloudy. Missed attempt(s): 20 gauge in right antecubital area. 02:56 CBC with Diff Sent. wm 02:56 CMP Sent. wm 02:56 Lipase Sent. wm 02:56 Urine Microscopic Only Sent. wm 02:59 No provider procedures requiring assistance completed. jj7 03:00 Patient has correct armband on for positive identification. Bed in low position. Call jj7 light in reach. Adult w/ patient. 03:47 Notified ED physician of a critical lab result(s). glucose of 420 Dr Hernandez notified. bb 04:09 CT Abd/Pelvis - IV Contrast Only In Process Unspecified. EDMS 05:00 Cali Valdivia MD is Hospitalizing Provider. ms3 06:16 SARS RAPID Sent. jj7 07:09 Kassie Hughes, RN is Primary Nurse. ko1 Administered Medications: 02:56 Not Given (Patient Refused): morphine 4 mg IVP once over 4 mins jj7 05:27 Drug: LevaQUIN (levofloxacin) 750 mg Route: IVPB; Site: left antecubital; jj7 06:10 Drug: Insulin Regular Human 5 units {Co-Signature: [email or web address] (Lida Ryan RN).} Route: vc1 IVP; Site: left antecubital; 06:10 Drug: NS 0.9% 1000 ml Route: IV; Rate: 1000 ml; Site: left antecubital; jj7 Medication: 03:00 VIS not applicable for this client. jj7 Outcome: 05:00 Decision to Hospitalize by Provider. ms3 05:15 Condition: improved jj7 12:15 Patient left the ED. ss Signatures: Dispatcher [employer] EDMS Samra Malave RN RN bb Keren Lawler RN RN ss Song Hernandez, DO ms3 Nafisa Yee Wendy wm Slawson, Ashby, RN RN as6 Carmen Hall RN RN vc1 Kassie Hughes RN RN ko1 Johnson, Juwairiyah, RN RN jj7 Lida Ryan RN jj7
[2022-06-22] MEDS ORDERED: MORPHINE 4 MG/ML SYR IV PRN (05:10)
[2022-06-22] MEDS ORDERED: ONDANSETRON 4 MG/2 ML VIAL IV PRN (05:10)
[2022-06-22] MEDS ORDERED: Levofloxacin 750mg IV 750 MG/150 ML BAG IV ONE (05:28)
[2022-06-22] MEDS ORDERED: ONDANSETRON 4 MG/2 ML VIAL ONE ×3 (05:34→11:54)
[2022-06-22] MEDS ORDERED: NA CHLORIDE 0.9% 1,000 ML IV SCH (06:00)
[2022-06-22] MEDS ORDERED: NA CHLORIDE 0.9% 1,000 ML ONE ×3 (06:14→12:05)
[2022-06-22] MEDS ORDERED: INSULIN -REGULAR HUMAN 50 UNIT/0.5 ML ML ONE ×3 (06:14→14:52)
[2022-06-22 06:32] LABS: SARS-CoV-2 Antigen Rapid Res Negative (Negative)
[2022-06-22 10:20] VITALS: BMI 36.3
[2022-06-22] MEDS ORDERED: BUPIVACAINE 0.5% PF 10 ML VIAL SQ ONE ×2 (11:37→13:41)
[2022-06-22] MEDS ORDERED: propofoL 200 MG/20 ML VIAL IV ONE (11:53)
[2022-06-22] MEDS ORDERED: FENTANYL CITR 100 MCG/2 ML ONE (11:53)
[2022-06-22] MEDS ORDERED: MIDAZOLAM HCL 2 MG/2 ML INJ ONE (11:53)
[2022-06-22] MEDS ORDERED: ROCURONIUM 50 MG/5 ML VIAL IV ONE (11:54)
[2022-06-22] MEDS ORDERED: dexAMETHasone 4 MG/ML VIAL ONE (11:54)
[2022-06-22] MEDS ORDERED: LIDOCAINE 1% MPF 2 ML AMPULE ONE (11:54)
--- NOTE | 2022-06-22 12:44 | P.HP ---
Date of Service: 06/22/22 PC: This 27-year-old male presents the emergency room with abdominal pain for diagnosis and treatment. HPC: Patient noticed last night he was having some nausea vomiting and some abdominal pain. Googled it on the Internet.. He had appendicitis and came to the emergency room for evaluation. PMHx: Sleep apnea, borderline diabetes, borderline hypertension Social Hx: No known allergies Sys R: No cough, wheeze, shortness of breath. No chest pain or palpitations. Denies any urinary complaints O/E: Awake alert and feels relatively comfortable at the moment. Remains afebrile with stable vital signs. HEENT: Negative Chest: Chest movement equal bilaterally Abd: Pain with guarding and rebound located just lateral to the umbilicus. Washta: Intact Data: Elevated white cell count, CT scan supports clinical diagnosis of acute appendicitis. It is interesting to note that the patient's appendix is up at the level of the umbilicus. Impression: Acute abdomen with appendicitis Plan: I will taken the operating room for laparoscopic possible open appendectomy. The risks of this procedure have been discussed. The possibility of bleeding, infection, injury to bowel blood vessels and surrounding structures has been outlined. The possible need for an open and or further surgeries and procedures was discussed. He understands and wants us to proceed.
[2022-06-22] MEDS ORDERED: MORPHINE 10 MG/ML VIAL ONE (13:12)
--- NOTE | 2022-06-22 13:54 | P.OP ---
Preoperative diagnosis: Acute abdomen with appendicitis Postoperative diagnosis: The same Primary procedure: Upper scopic appendectomy Anesthesia: General Estimated blood loss: Less than 10 cc Specimen: 1 appendix Operative Technique: The patient brought the operating room placed supine on the table. After the induction of adequate general endotracheal anesthesia, the area of the abdomen was prepped with a DuraPrep solution, he was draped in usual aseptic manner. Attention was turned towards the umbilicus. A skin incision was made. This was brought down through the skin and subcutaneous tissue. The Visiport was used to enter the peritoneal cavity and created pneumoperitoneum to approximately 12 mmHg. Under direct vision a 5 mm trocar was placed in the lower midline, and another on the right lateral side of the abdomen. Attention was turned towards the right colon. As we traced it down and ends just at the level of the umbilicus. We identified the last time he had following it we could see the appendix curling into the retroperitoneal area. An opening was made in the peritoneum to deliver up and expose the base of the appendix. We were able to isolate it from the surrounding structures. After having converted the 11 mm trocar to a 12 at the umbilicus, it was introduced into the peritoneal cavity, and placed across the base of the appendix and fired. The mesentery of the appendix was now taken down using electrocautery. We traced the appendix around as a curved upwards almost to the hepatic flexure. The appendix was now isolated. Its mesentery was identified we saw the vasculature. The linear stapler was again placed across the vasculature and fired. The appendix was now fully detached using electrocautery. The specimen was placed into an Endo Catch, and brought out through the umbilical trocar site. Attention was turned out back towards the umbilicus. The fascial defect was approximated using the Endo Close and absorbable suture. At this point the abdomen was inspected to ensure adequate hemostasis. It was irrigated with a copious amount of a saline solution. The pneumoperitoneum was now collapsed, the trochars removed, and hakeem applied to the skin. At the end of the procedure the patient was in a stable condition when sent to the recovery room. Needle sponge instrument count were correct. No drains were placed. Complications: None Transferred to: Recovery Room Condition: Good
[2022-06-22] MEDS ORDERED: HYDROCODONE/APAP 7.5/325 MG TAB PO PRN (14:57)
--- NOTE | 2022-06-23 11:04 | RAD REPORT ---
EXAM DESCRIPTION: CT - Abdomen Pelvis W Contrast - 06/22/2022 4:06 am CLINICAL HISTORY: The patient is 27 years old and is Male; RLQ abdominal pain TECHNIQUE: Axial computed tomography images of the abdomen and pelvis with intravenous contrast. S agittal and coronal reformatted images were created and reviewed. This CT exam was performed using one or more of the following dose reduction techniques: automated exposure control, adjustment of t he mA and/or kV according to patient size, and/or use of iterative reconstruction technique. COMPARISON: No relevant prior studies available. FINDINGS: LUNG BASES: Visualized lung bases are well-aerated and clear. ABDOMEN: LIVER: Mild hepatomegaly with diffuse hepatic steatosis. GALLBLADDER AND BILE DUCTS: Unremarkable. No calcified stones. No ductal dilation. PANCREAS: Unremarkable. No mass. No ductal dilation. SPLEEN: Unremarkable. No splenomegaly. ADRENALS: Unremarkable. No mass. KIDNEYS AND URETERS: Unremarkable. No solid mass. No hydronephrosis. STOMACH AND BOWEL: Unremarkable. No obstruction. No mucosal thickening. PELVIS: APPENDIX: Acute uncomplicated retrocecal appendicitis. Retrocecal appendix is distended, measuring up to 1.4 cm in maximum diameter, with basilar wa ll thickening and periappendiceal stranding, consistent with acute appendicitis. No visualized append icolith is identified. No kwadwo pneumoperitoneum, significant free fluid, or focal fluid collection i s identified to suggest perforation or abscess formation. BLADDER: Unremarkable. No mass. REPRODUCTIVE: Unremarkable as visualized. ABDOMEN and PELVIS: INTRAPERITONEAL SPACE: See above. BONES/JOINTS: No acute fracture. No dislocation. SOFT TISSUES: Unremarkable. VASCULATURE: Unremarkable. No abdominal aortic aneurysm. LYMPH NODES: Unremarkable. No enlarged lymph nodes. IMPRESSION: 1. Acute uncomplicated retrocecal appendicitis. 2. Mild hepatomegaly with diffuse hepatic steatosis. Dr. Archer discussed these critical findings regarding appendicitis with Dr. 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 Electronically signed by: Emigdio Archer MD 06/22/2022 4:52 AM CDT Due to temporary technical issues with the PACS/Fluency reporting system, reports are being signed by the in house radiologists without review as a courtesy to insure prompt reporting. The interpreting radiologist is fully responsible for the content of the report.
[2022-06-23 18:25] VITALS: TEMP 98.2
[2022-06-23 18:29] VITALS: O2SAT 99
[2022-06-23 18:31] VITALS: BP 142/78
== END 2022-06-22 16:20 | disposition home or self-care (01) ==
LOC: ER 01:11 → ERHOLD 05:17
PROVIDERS: ADMIT Surgery; ATTEND Surgery
PROC: 0DTJ4ZZ Resection of Appendix, Percutaneous Endoscopic Approach (ICD-10-PCS; principal; 2022-06-22 11:30)
DX: K35.80 Unspecified acute appendicitis (principal); K38.1 Appendicular concretions; G47.30 Sleep apnea, unspecified; R73.03 Prediabetes; I10 Essential (primary) hypertension; Z28.310 Unvaccinated for COVID-19; Z20.822 Contact with and (suspected) exposure to COVID-19
CPT/HCPCS: 36415; 74177; 80053; 81003; 81015; 82565; 82947; 83690; 85025; 87811; 88304; G0378; J1100; J1815; J2250; J2405; J2704; J3010; J7030; Q9967

== ENCOUNTER 2025-07-25 12:40 | Emergency (ER) | payer SELFPAY ==
--- NOTE | 2025-07-25 15:23 | ER ---
Nurse's Notes [facility] Name: Carl Sandy Age: 30 yrs Sex: Male : 1995 Arrival Date: 07/25/2025 Time: 12:40 Bed Waiting Private MD: Diagnosis: Assessment: 07/25 14:10 Reassessment: called from lobby, no answer. me1 14:21 Reassessment: called from lobby, no answer. me1 14:43 Reassessment: called from lobby, no anwer. me1 15:20 Reassessment: Called 3 times from the lobby with no answer. Notified Dr Ferrell and me1 charge nurse AMOR Veliz that patient eloped. ED Course: 12:44 Patient arrived in ED. al6 12:49 Eliz Ferrell MD is Attending Physician. sp3 Administered Medications: No medications were administered Outcome: 15:23 Patient left the ED. me1 Signatures: Eliz Ferrell MD MD sp3 Masha Stuart RN RN me1 Idania Elkins al6
== END 2025-07-25 15:23 | disposition left against medical advice (07) ==
LOC: ER 12:40
DX: Z02.9 Encounter for administrative examinations, unspecified (principal)